=== PATIENT | female | born 2005 | race Caucasian/White ===

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

== ENCOUNTER 2025-07-14 13:38 | Emergency (ER) | payer BC, SELFPAY ==
--- NOTE | ~2025-07-14 | XR_ITS ---
CLINICAL HISTORY: vomiting,chest pain Two views of the chest. COMPARISON: None provided. FINDINGS: Normal heart and mediastinal contours. No consolidation. No pleural effusion or pneumothorax. No acute fracture. IMPRESSION: 1. No consolidation. This document has been electronically signed by: South Shay MD on 07/14/2025 15:19:19
--- NOTE | ~2025-07-14 | XR_ITS ---
CLINICAL HISTORY: ? FB in throat Two views of soft tissues of the neck. COMPARISON: None provided. FINDINGS: Prevertebral soft tissues are normal. Epiglottis is unremarkable. No fracture identified. Visualized portions of the lungs are clear. IMPRESSION: 1. Normal radiograph of the soft tissue of the neck. No radiopaque foreign body overlying the soft tissues of the neck. This document has been electronically signed by: South Shay MD on 07/14/2025 16:09:27
--- NOTE | 2025-07-14 13:41 | ED_ITS ---
HPI - General Adult General Chief complaint: Nausea/Vomiting/Diarrhea Stated complaint: laced drinks/ joints? CP, vomitti Time Seen by Provider: 07/14/25 14:54 Source: patient Mode of arrival: ambulatory Limitations: no limitations History of Present Illness ED Provider: NIKITA Arguello HPI narrative: This is a 20-year-old female history of PTSD, presenting to the emergency department with nausea and vomiting since last night. Reports that she is vomiting is improved however still vomiting and feeling very nauseous She thinks that she may have had her drinks laced or something in her joint when smoking she never passed out. She had three beers and two joints lasat night. At this time feeling nauseous. Denies fevers, chills, chest pain, shortness of breath, headache, vision changes, blood in stool or vomit, changes in urinary or bowel habits.' She tells me I throw up every time im high Related Data Home Medications ?Medication ?Instructions ?Recorded ?Confirmed lamotrigine 200 mg tablet 200 mg PO DAILY 06/28/2310/08 (Lamictal) lorazepam 2 mg tablet (Ativan) 2 mg PO TID PRN Anxiety 06/28/23 06/28/23 lurasidone 20 mg tablet (Latuda) 20 mg PO BEDTIME 06/1706/29/23 lurasidone 80 mg tablet (Latuda) 80 mg PO QAM 06/28/23 06/29/23 prazosin 2 mg capsule 2 mg PO BID 06/28/23 3 lorazepam 1 mg tablet 1 mg PO BID PRN Anxiety 06/1706/29/23 quetiapine 25 mg tablet 25 mg PO TID PRN Agitation 0 06/29/23 06/29/23 Previous Rx's ?Medication ?Instructions ?Recorded diphenhydramine HCl 25 mg capsule 25 mg PO TID PRN all ergic reaction 07/14/25 (Benadryl) #20 caps metoclopramide HCl 10 mg tablet 10 mg PO Q6H PRN heada олег #20 tabs 07/14/25 (Reglan) Allergies Allergy/AdvReac Type Severity Reaction Status Date / Time No Known Allergies Allergy Verified 07/14/25 13:46 Review of Systems 2 Review of Systems: Yes all other systems are reviewed and are negative PMFSH Past Medical History Attestation statement: The following information was validated with the patient. Source: old records reviewed and nursing notes reviewed Medical History Chronic post-traumatic stress disorder (PTSD) Bipolar disorder Social History Social History Advance Directives: No Advance Directives Information Provided: No Do you have a plan to hurt others: No Plan Physical Exam ED Exam Exam: Appearance: Alert.? Oriented X3.? No acute distress.? Head: Normocephalic, atraumatic, no step-offs or deformities Eyes: Pupils equal, round and reactive to light.? ENT: Pharynx normal.? Neck: Normal inspection.? Neck supple.? CVS: Normal heart rate and rhythm.? Pulses normal.? Respiratory: No respiratory distress.? Breath sounds normal.? Abdomen: Soft and nontender.? Skin: Skin warm and dry.? Normal skin color.? Normal skin turgor.? Extremities: No lower extremity edema.? No calf ttp. 5/5 strength to bilateral upper and lower extremities Neuro: Oriented X 3.? No motor deficit.? No sensory deficit. CN 2-12 intact Vital Signs: Vital Signs - 24 hr 07/14/25 13:43 Temperature 97.6 F Pulse Rate 80 Respiratory Rate 18 Blood Pressure 140/87 H Pulse Oximetry 98 Oxygen Delivery Method Room Air BMI result Body Mass Index 33.0 vss Course Course Course Narrative: Jane Hill [employer] VP 07/14/25 7825 This is a rapid medical exam. Deferred additional HPI, ROS, PE to primary provider. 20 yo female with history of bipolar disorder, ADHD here with complaints of vomiting. Yesterday she had 3 beers, 2 joints. 6 hours later she developed vomiting. Now feels dizzy, chest pain, subjective fevers, chills. Will obtain viral testing, REYNOSO, EKG, CXR Declined zofran in triage. VSS Reevaluation(s) Reevaluation #1: Urine toxicology positive for marijuana. COVID, flu negative. Time: 15:50 Reevaluation #2: Patient with leukocytosis 14.9, no left shift chemistry unremarkable. Normal lipase. Negative beta hCG. Negative ethanol. Patient tolerating p.o.. No episodes of nausea or vomiting. I suspect leukocytosis in the setting of reactivity from nausea and vomiting unlikely infectious. No abdominal tenderness on exam therefore no indication for abdominal imaging not suspect intra-abdominal process. Patient also tells me she always vomits when she gets ?high ?. Educated patient on diagnosis and treatment plan, answered all question, patient verbalizes understanding. At this time patient will be discharged home, advised to return with new or worsening symptoms. Educated on worrisome signs and symptoms and when to return. At this time I feel comfortable discharge home. Time: 16:22 Medications Administered Discontinued Medications Generic Name Dose Route Start Last Admin Trade Name Kenia PRN Reason Stop Dose Admin Al Hydroxide/Mg Hydroxide 15 ml 07/14/25 14:59 07/14/25 15:18 Magnesium Hydrox/Alum Hydrox 30 Ml Oral.Susp PO 07/14/25 15:00 15 ml ONCE ONE Administration Diphenhydramine HCl 25 mg 07/14/25 15:14 07/14/25 15:18 Diphenhydramine Hcl 25 Mg Capsule PO 07/14/25 15:15 25 mg ONCE ONE Administration Metoclopramide HCl 10 mg 07/14/25 15:14 07/14/25 15:18 Metoclopramide Hcl 10 Mg Tablet PO 07/14/25 15:15 10 mg ONCE ONE Administration Ondansetron HCl 4 mg 07/14/25 14:59 07/14/25 15:21 Ondansetron Odt 4 Mg Tab.Rapdis TRANSLINGU 07/14/25 15:00 Not Given ONCE ONE Medical Decision Making Medical Decision Making [facility] Narrative: 1457 20-year-old female presents with nausea, vomiting thinks she was laced or something in her joint. Now feels foreign body sensation in throat. Physical exam benign. History and physical exam concerning for nausea and vomiting likely secondary to drinking or cyclic vomiting Unlikely acute abdomen, appendicitis, cholecystitis, choledocholithiasis, pancreatitis, diverticulitis. Will rule out although unlikely. Will also rule out viral illness. Foreign body in throat likely sensation due to nausea and vomiting. I do not suspect actual foreign body in throat. Will rule out metabolic derangement. This also could be marijuana induced hyperemesis syndrome Plan basic labs, imaging. Differential Diagnosis Differential Diagnoses: The differential diagnosis associated with the presentation includes (History and physical exam concerning for nausea and vomiting likely secondary to drinking or cyclic vomiting Unlikely acute abdomen, appendicitis, cholecystitis, choledocholithiasis, pancreatitis, diverticulitis. Will rule out although unlikely. Will also rule out viral illness. Foreig) Admission/Observation Consideration of admission/observation: Escalation of care including admission/observation considered Lab Data MDM Lab Attestation statement: I reviewed the patient's lab results. 07/14/25 15:45 07/14/25 15:45 Labs: Lab Results 07/14/25 07/14/25 Range/Units 14:01 15:45 WBC 14.9 H (4.8-10.8) X10*3/uL RBC 5.20 (4.20-5.50) X10*6/uL Hgb 15.0 (12.0-16.0) g/dl Hct 40.8 (37.0-47.0) % MCV 78.5 L (80.0-98.0) fL MCH 28.8 (27.0-33.0) pg MCHC 36.8 H (31.0-35.0) g/dl RDW 14.2 (11.0-16.0) % Plt Count 323 (160-400) X10*3/uL MPV 10.1 (9.4-12.3) fL Immature Gran % (Auto) 0.3 (0.0-0.4) % Neut % (Auto) 76.0 H (45-73) % Lymph % (Auto) 16.4 L (20-40) % Walker % (Auto) 6.3 (2-11) % Eos % (Auto) 0.6 (0-4) % Baso % (Auto) 0.4 (0-2) % Lymph # (Auto) 2.4 (1.2-4.9) X10*3/uL Walker # (Auto) 0.9 (0.1-1.2) X10*3/uL Eos # (Auto) 0.1 (0.0-0.4) X10*3/uL Baso # (Auto) 0.1 (0.0-0.2) X10*3/uL Abs Immat Gran (auto) 0.05 H (0.00-0.03) X10*3/uL Absolute Neuts (auto) 11.3 H (2.0-8.3) x10*3/uL Absolute Nucleated RBC 0.000 (0.0-0.012) X10*3/uL Nucleated RBC % (auto) 0.0 (0.0-0.2) /100WBC Sodium 138 (135-145) mmol/L Potassium 3.9 (3.3-5.1) mmol/L Chloride 106 (96-108) mmol/L Carbon Dioxide 23 (22-29) mmol/L Anion Gap 13 (12-20) BUN 10 (9-16) mg/dL Creatinine 0.80 (0.5-1.4) mg/dL Estim Creat Clear Calc 145.4 Estimated GFR > 60 Random Glucose 95 (60-115) mg/dL Calcium 9.3 D (8.4-10.2) mg/dL Total Bilirubin 1.0 (0.0-1.0) mg/dL AST 23 (5-31) U/L ALT 26 (0-31) U/L Alkaline Phosphatase 77 (39-117) U/L Total Protein 7.3 (6.5-8.0) g/dL Albumin 4.5 (3.5-5.0) g/dL Lipase 10 (8-78) U/L Beta HCG, Quant < 2 mIU/mL Urine Opiates Screen Not Detected (Not Detect) Ur Buprenorphine Scrn Not Detected (Not Detect) ng/mL Ur Oxycodone Screen Not Detected (Not Detect) ng/mL Urine Methadone Screen Not Detected (Not Detect) ng/mL Urine Fentanyl Screen Not Detected (Not Detect) Ur Barbiturates Screen Not Detected (Not Detect) Ur Phencyclidine Scrn Not Detected (Not Detect) Ur Amphetamines Screen Not Detected (Not Detect) U Benzodiazepines Scrn Not Detected (Not Detect) Urine Cocaine Screen Not Detected (Not Detect) U Marijuana (THC) Screen POSITIVE H (Not Detect) Ethyl Alcohol < 10 mg/dL COVID-19 (PAWAN) Negative (Negative) COVID-19 Clin Com See Note Influenza Type A (WHITNEY) Negative (Negative) Influenza Type B (WHITNEY) Negative (Negative) Influenza A & B Note See Note Independent Interpretation I performed an independent interpretation of an: EKG (Vent. Rate : 84 BPM Atrial Rate : 84 BPM P-R Int : 144 ms QRS Dur : 88 ms QT Int : 372 ms P-R-T Axes : 48 -1 7 degrees QTcB Int : 439 ms Normal sinus rhythm with sinus arrhythmia Normal ECG No previous ECGs available ) and Plain X-Ray Radiology Impression Discussion of test interpretation with radiology: I have reviewed the radiologist's reading. External Record Review External record reviewed: Inpatient record, Office record, Outpatient record, Prior outpatient labs, Prior outpatient radiology, Primary care record and Outside ED record Chronic Conditions Patient?s care impacted by: Other (bipolar PTSD ) Critical Care Time Critical Care Time Critical Care Time: Yes Total Critical Care Time: 35 Attestation: I attest to this time spent taking care of the patient, obtaining history, physical, reviewing labs, imaging, speaking to my attending and or speaking to specialist. Or preforming a procedure Discharge Plan Discharge Clinical Impression: Cyclical vomiting syndrome, Nausea Patient Disposition: Home, Self-Care Instructions: Acute Nausea and Vomiting (ED) Additional Instructions: LTake your medications as prescribed. If you were prescribed antibiotics today, it is important that you take your medication to their entirety, do not skip any doses, do not finish them early. Follow-up with your primary care provider this week. Return to the emergency department with new or worsening symptoms. Such as fevers, chills, chest pain, shortness of breath, nausea, vomiting, dizziness, headache, vision changes, lethargy In case of emergency call 911 Please take Reglan and Benadryl together for nausea and vomiting. Do not take it more than twice a day. Do not take Reglan alone it can lead to involuntary muscle spasms. Prescriptions: New diphenhydramine HCl [Benadryl] 25 mg capsule 25 mg PO TID PRN (Reason: allergic reaction) Qty: 20 0RF metoclopramide HCl [Reglan] 10 mg tablet 10 mg PO Q6H PRN (Reason: headache) Qty: 20 0RF No Action lorazepam [Ativan] 2 mg Tablet 2 mg PO TID PRN (Reason: Anxiety) lamotrigine [Lamictal] 200 mg Tablet 200 mg PO DAILY lurasidone [Latuda] 20 mg Tablet 20 mg PO BEDTIME Rx Instructions: must administer with food (at least 350 calories) lurasidone [Latuda] 80 mg Tablet 80 mg PO QAM Rx Instructions: must administer with food (at least 350 calories) prazosin 2 mg Capsule 2 mg PO BID quetiapine 25 mg Tablet 25 mg PO TID PRN (Reason: Agitation) lorazepam 1 mg Tablet 1 mg PO BID PRN (Reason: Anxiety) Referrals: Amanda Tim MD [Primary Care Provider, Pediatrics] Stand Alone Forms: Work/School Release Print Language: Welsh
[2025-07-14 13:43] VITALS: BP 140/87; PULSE 80; RESP 18; TEMP 36.4; O2SAT 98; BMI 33.0
--- NOTE | 2025-07-14 13:45 | ECG_ITS ---
Test Reason : cp Blood Pressure : */* mmHG Vent. Rate : 84 BPM Atrial Rate : 84 BPM P-R Int : 144 ms QRS Dur : 88 ms QT Int : 372 ms P-R-T Axes : 48 -1 7 degrees QTcB Int : 439 ms Normal sinus rhythm with sinus arrhythmia Normal ECG No previous ECGs available Referred By: Jane Hill Electronically Signed By: Mikhail Doyle
--- OUTSIDE RECORDS SUMMARY | 2025-07-14 14:08 | XMS_ITS | Encounter Summary ---
Author Organization [facility] Address Unknown Care Team Providers Care Trigonometry Teacher Name Role Phone Opal Tim MD Primary Care Provider + Encounter Details Date Type Department Care Team (Late st Contact Info) Description 11/12/2019 Scanned Document [facility] [place] [address] Opal Tim MD [address] [place] [phone] Social History Tobacco Use Types Packs/Day Years Used Date Smoking Tobacco: Never Smokeless Tobacco: Never Alcohol Use Standard Drinks/Week Comments No 0 (1 standard drink = 0.6 oz pur e alcohol) Comments No Sex and Gender Information Value Date Recorded Sex Assigned at Female 03/30/2022 10:47 PM EDT Legal Sex Female 8:10 AM EDT Gender Identity Female 03/30/2022 10:47 PM EDT Sexual Orientation Lesbian or Hardy 03/30/2022 10 :47 PM EDT documented as of this encounter Plan of Treatment Upcoming Encounters Date Type Department Care Team (Late st Contact Info) Description 04/10/2026 11:00 AM EDT Office Visit [facility] [address] [address] Opal Tim MD [address] [place] [phone] 06/17/2026 1:25 PM EDT Appointment [facility] Echocardiography [address] [place] [address], [place] [address] 06/17/2026 2:30 PM EDT Follow Up [facility] Cardiology - [address] [place] [address] Radha Yu MD [address] [phone] documented as of this encounter Visit Diagnoses Not on filedocumented in this encounter Additional Health Concerns Infection Onset Date Last Indicated Resolved Time R/O COVID-19 07/16/2021 07/16/2021 07/16/2021 8:12 PM EDT R/O COVID-19 09/13/2021 09/13/2021 09/13/2021 11:2 0 PM EST COVID-19 09/13/2021 09/13/2021 09/23/2021 7:20 PM EST R/O COVID-19 04/30/2022 04/30/2022 04/30/2022 2:45 AM EDT R/O COVID-19 05/02/2022 05/02/2022 05/02/2022 7:42 AM EDT documented as of this encounter Care Teams Trigonometry Teacher Relationship Specialty Start Date End Date Opal Tim MD [address] [facility] [address] [place] [phone] PCP - General Pediatrics 01/03/13 documented as of this encounter
--- OUTSIDE RECORDS SUMMARY | 2025-07-14 14:08 | XMS_ITS | Encounter Summary ---
Author Organization [facility] Address Unknown Care Team Providers Care Wind Power Project Manager Name Role Phone Opal Tim MD Primary Care Provider + Encounter Details Date Type Department Care Team (Late st Contact Info) Description 05/25/2021 Scanned Document [facility] [place] [address] Opal Tim MD [address] [place] [phone] Social History Tobacco Use Types Packs/Day [...] EDT Office Visit [facility] [place] [address] Opal Tim MD [address] [place] [phone] 06/17/2026 1:25 PM EDT Appointment [facility] Echocardiography [address] [facility] [address]nd [place] [address] 06/17/2026 2:30 PM EDT Follow Up [facility] Card[facility] - [facility] [address] [facility] [address] [place] [address] Radha Yu MD [address] [phone] documented as of this encounter Visit Diagnoses [...] documented as of this encounter Care Teams Wind Power Project Manager Relationship Specialty Start Date End Date Opal Tim MD [address] [facility] 4 [place] [phone] PCP - General Pediatrics 01/03/13 documented as of this encounter
--- OUTSIDE RECORDS SUMMARY | 2025-07-14 14:08 | XMS_ITS | Encounter Summary ---
Author Organization [facility] Address [address] [place] [address] Care Team Providers Care Manager Service Desk Name Role Phone Opal Tim MD Primary Care Provider + Dana Perkins BS Unavailable [phone] Encounter Details Date Type Department Care Team (Late st Contact Info) Description 01/29/2022 Prep for Surgery [facility]-Admission [facility] [address] [place] [phone] Amy Ramos RN [address] [place] [phone] Social History Tobacco Use Types Packs/Day Years Used Date Smoking Tobacco: Never Assessed Comments Unknown Sex and Gender Information Value Date Recorded Sex Assigned at Female 03/22/2025 1:49 PM EDT Legal Sex Female 5:49 PM EDT Gender Identity Female 03/22/2025 1:49 PM EDT Sexual Orientation Heterosexual (straight) 03/22 1:49 PM EDT COVID-19 Exposure Response Date Recorded In the last 10 days, have yo u been in contact with someone who was confirmed or suspected to have Coronavirus/COVID-19? No / Unsure 02/01/2022 8:19 AM EDT documented as of this encounter Plan of Treatment Not on file documented as of this encounter Visit Diagnoses Not on filedocumented in this encounter Care Teams Manager Service Desk Relationship Specialty Start Date End Date Opal Tim MD PCP - General Pediatrics 11/15/16 Dana Perkins BS [address] [place] [address] Social Work 09/04/24 documented as of this encounter
--- OUTSIDE RECORDS SUMMARY | 2025-07-14 14:08 | XMS_ITS | Encounter Summary ---
Author Organization [facility] Address [address] [place] [phone] Care Team Providers Care Tank Truck Operator Name Role Phone Opal Tim MD Primary Care Provider + Encounter Details Date Type Department Care Team (Late st Contact Info) Description 05/26/2021 Scanned Document [facility] SCHEDULING [address] [place] [address] Opal Tim MD [address] [place] [phone] Social History Tobacco Use Types Packs/Day [...] EDT Office Visit [facility] of [address] [address] Opal Tim MD [address] [place] [phone] 06/17/2026 1:25 PM EDT Appointment [facility] [address] [facility] [address] [place] [address] 06/17/2026 2:30 PM EDT Follow Up [facility] - [address] [place] [address] Radha Yu MD [address] [phone] documented as of this encounter Visit Diagnoses [...] documented as of this encounter Care Teams Tank Truck Operator Relationship Specialty Start Date End Date Opal Tim MD [address] [facility] 4 [place] [phone] PCP - General Pediatrics 01/03/13 documented as of this encounter
--- OUTSIDE RECORDS SUMMARY | 2025-07-14 14:08 | XMS_ITS | Encounter Summary ---
Author Organization [facility] Address Unknown Care Team Providers Care Outpatient Receptionist Name Role Phone Opal Tim MD Primary Care Provider + Encounter Details Date Type Department Care Team (Late st Contact Info) Description 05/25/2021 Scanned Document [facility] [place] [address] Opal Tim MD [address] [place] [phone] Social History Tobacco Use Types Packs/Day [...] EDT Office Visit [facility] [place] [address] Opal Tim MD [address] [place] [phone] 06/17/2026 1:25 PM EDT Appointment [facility] Echocardiography 35 [facility] 2nd [place] [address] 06/17/2026 2:30 PM EDT Follow Up [facility] Cardiology - [facility] 35 [facility] 2nd [place] [address] Radha Yu MD [address] [phone] documented as of this encounter Visit Diagnoses [...] documented as of this encounter Care Teams Outpatient Receptionist Relationship Specialty Start Date End Date Opal Tim MD [address] [facility] 4 [place] [address] PCP - General Pediatrics 01/03/13 documented as of this encounter
--- OUTSIDE RECORDS SUMMARY | 2025-07-14 14:08 | XMS_ITS | Encounter Summary ---
Author Organization [facility]oles[facility] Address Unknown Care Team Providers Care Post Tensioning Ironworker Helper Name Role Phone Opal Tim MD Primary Care Provider + Encounter Details Date Type Department Care Team (Late st Contact Info) Description 05/11/2021 Scanned Document [facility] [place] [address] Opal Tim MD [address] [place] [phone] Social History Tobacco Use Types Packs/Day [...] EDT Office Visit [facility] [place] [address] Opal Tim MD [address] [place] [phone] 06/17/2026 1:25 PM EDT Appointment [facility] Echocardiography 35 [facility] 2nd [place] [address] 06/17/2026 2:30 PM EDT Follow Up [facility] Cardiology - [facility] 35 [facility] 2nd [place] [address] Radha Yu MD [address] [phone] documented as of this encounter Visit Diagnoses [...] documented as of this encounter Care Teams Post Tensioning Ironworker Helper Relationship Specialty Start Date End Date Opal Tim MD [address] [facility] 4 [place] [address] PCP - General Pediatrics 01/03/13 documented as of this encounter
--- OUTSIDE RECORDS SUMMARY | 2025-07-14 14:08 | XMS_ITS | Encounter Summary ---
Author Organization [facility]oles[facility] Address Unknown Care Team Providers Care Glass Laminating Operator Name Role Phone Opal Tim MD Primary Care Provider + Encounter Details Date Type Department Care Team (Late st Contact Info) Description 10/14/2021 Scanned Document [facility] [address] [address] Opal Tim MD [address] [place] [phone] Social History Tobacco Use Types Packs/Day Years [...] or Hardy 03/30/2022 10 :47 PM EDT COVID-19 Exposure Response Date Recorded In the last month, have you been in contact with someone who was confirmed or suspected to have Coronavirus / COVID-19? No / Unsure 10/08/2021 12:01 PM EST documented as of this encounter Plan of Treatment Upcoming Encounters Date Type Department Care Team (Late st Contact Info) Description 04/10/2026 11:00 AM EDT Office Visit [facility] of [address] [place] [address] Opal Tim MD [address] [place] [phone] 06/17/2026 1:25 PM EDT Appointment [facility] Echocardiography 35 [facility] 2nd [place] [address] 06/17/2026 2:30 PM EDT Follow Up [facility] Cardiology - [facility] 35 [facility] [address]nd [place] [address] Radha Yu MD [address] [phone] documented as of this encounter Visit Diagnoses Not on filedocumented in this encounter Additional Health Concerns Infection Onset Date Last Indicated Resolved Time R/O COVID-19 04/30/2022 04/30/2022 04/30/2022 2:45 AM EDT R/O COVID-19 05/02/2022 05/02/2022 05/02/2022 7:42 AM EDT documented as of this encounter Care Teams Glass Laminating Operator Relationship Specialty Start Date End Date Opal Tim MD [address] [place] [phone] PCP - General Pediatrics 01/03/13 documented as of this encounter
--- OUTSIDE RECORDS SUMMARY | 2025-07-14 14:08 | XMS_ITS | Encounter Summary ---
Author Organization Pediatric [facility] Adolesce nt Medicine [facility] Address Unknown Care Team Providers Care Paper Sorter And Counter Name Role Phone Opal Tim MD Primary Care Provider + Encounter Details Date Type Department Care Team (Late st Contact Info) Description 07/07/2021 Scanned Document [facility] [place] [address] Opal Tim MD [address] [place] [phone] Social History Tobacco Use Types Packs/Day [...] EDT Office Visit [facility] [place] [address] Opal Tim MD [address] [place] [phone] 06/17/2026 1:25 PM EDT Appointment [facility] Echocardiography 35 [facility] 2nd [facility] [place] [address] 06/17/2026 2:30 PM EDT Follow Up [facility] Cardiology - [facility] 35 [facility] [address]nd [facility] [place] [address] Radha Yu MD [address] [phone] documented as of this encounter Visit Diagnoses [...] documented as of this encounter Care Teams Paper Sorter And Counter Relationship Specialty Start Date End Date Opal Tim MD [address] [facility] 4 [place] [address] PCP - General Pediatrics 01/03/13 documented as of this encounter
--- OUTSIDE RECORDS SUMMARY | 2025-07-14 14:08 | XMS_ITS | Encounter Summary ---
Author Organization [facility]olesce nt Medicine [facility] Address Unknown Care Team Providers Care Patternmaker Name Role Phone Opal Tim MD Primary Care Provider + Encounter Details Date Type Department Care Team (Late st Contact Info) Description 04/08/2020 Scanned Document [facility] & [place] [address] Opal Tim MD [address] [place] [phone] Social History Tobacco Use Types Packs/Day Years [...] have Coronavirus / COVID-19? No / Unsure 03/24/2020 4:41 PM EDT documented as of this encounter Plan of Treatment Upcoming Encounters Date Type Department Care Team (Late Contact Info) Description 04/10/2026 11:00 AM EDT Office Visit [facility] Adolescent Medicine [facility], [address] [place] [address] Opal Tim MD [address] [place] [address] 4 [place] [address] 06/17/2026 1:25 PM EDT Appointment [address] 2nd [place] [address] 06/17/2026 2:30 PM EDT Follow Up [facility] Cardiology - [address] 2nd [place] [address] Radha Yu MD [address] [place] [phone] documented as of this encounter Visit Diagnoses [...] documented as of this encounter Care Teams Patternmaker Relationship Specialty Start Date End Date Opal Tim MD [address] [place] [address] 4 [place] [address] PCP - General Pediatrics 01/03/13 documented as of this encounter
--- OUTSIDE RECORDS SUMMARY | 2025-07-14 14:08 | XMS_ITS | Encounter Summary ---
Author Organization [facility] Adolesce nt [facility] Address Unknown Care Team Providers Care Barrel Builder Name Role Phone Opal Tim MD Primary Care Provider + Encounter Details Date Type Department Care Team (Late st Contact Info) Description 05/08/2021 Scanned Document [facility] [place] [address] Opal Tim MD [address] [place] [phone] Social History Tobacco Use Types Packs/Day [...] EDT Office Visit [facility] [place] [address] Opal Tim MD [address] [place] [phone] 06/17/2026 1:25 PM EDT Appointment [facility] Echocardiography 35 [facility] 2nd [place] [address] 06/17/2026 2:30 PM EDT Follow Up [facility] Cardiology - [facility] 35 [facility] [address]nd [place] [address] Radha Yu MD [address] [phone] documented as of this encounter Visit Diagnoses [...] documented as of this encounter Care Teams Barrel Builder Relationship Specialty Start Date End Date Opal Tim MD [address] [facility] 4 [place] [phone] PCP - General Pediatrics 01/03/13 documented as of this encounter
--- OUTSIDE RECORDS SUMMARY | 2025-07-14 14:08 | XMS_ITS | Encounter Summary ---
Author Organization Pediatric [facility] Adolesce nt Medicine [facility] Address Unknown Care Team Providers Care Cotton Presser Name Role Phone Opal Tim MD Primary Care Provider + Encounter Details Date Type Department Care Team (Late st Contact Info) Description 05/07/2021 Scanned Document [facility] [place] [address] Opal Tim MD [address] [place] [phone] Social History Tobacco Use Types Packs/Day [...] EDT Office Visit [facility] [place] [address] Opal Tim MD [address] [place] [phone] 06/17/2026 1:25 PM EDT Appointment [facility] Echocardiography 35 [facility] 2nd [place] [address] 06/17/2026 2:30 PM EDT Follow Up [facility] Cardiology - [facility] 35 [facility] [address]nd [place] [address] Radha Yu MD [address] [phone] documented as of this encounter Visit Diagnoses [...] documented as of this encounter Care Teams Cotton Presser Relationship Specialty Start Date End Date Opal Tim MD [address] [facility] 4 [place] [phone] PCP - General Pediatrics 01/03/13 documented as of this encounter
--- OUTSIDE RECORDS SUMMARY | 2025-07-14 14:09 | XMS_ITS | Encounter Summary ---
Author Organization [facility]oles[facility] nt Medicine [facility] Address Unknown Care Team Providers Care Stage Producer Name Role Phone Opal Tim MD Primary Care Provider + Encounter Details Date Type Department Care Team ([facility] st Contact Info) Description 10/21/2022 Scanned Document [facility] [address] [address] Opal Tim MD [address] [place] [phone] Social History Tobacco Use Types Packs/Day Years Used Date Smoking Tobacco: Never Smokeless Tobacco: Never Alcohol Use Standard Drinks/Week Comments No 0 (1 standard drink = 0.6 oz pur e alcohol) Overall Financial Resource Strain (CARDIA) Answe r Date Recorded How hard is it for you to pa y for the very basics like food, housing, medical care, and heating? Not hard at all 05/04/2022 PHQ-2 Answer Date Recorded PHQ-2 Total Score 0 05/03/2022 Hunger Vital Sign Answer Date Recorded Within the past 12 months, y ou worried that your food would run out before you got the money to buy more. Never true 05/04/20 22 Within the past 12 months, t he food you bought just didn't last and you didn't have money to get more. Never true 05/04/2022 PRAPARE - Transportation Answer Date Re corded In the past 12 months, has l ack of transportation kept you from medical appointments or from getting medications? No 04/16 In the past 12 months, has l ack of transportation kept you from meetings, work, or from getting things needed for daily living? No 05/04/2022 Housing Stability Answer Date Recorded Housing Stability I have a steady place to live 05/04/2022 Comments No Sex and Gender Information Value [...] EDT Office Visit [facility] [address] [address] Opal Tim MD [address] [place] [phone] 06/17/2026 1:25 PM EDT Appointment [facility] Echocardiography [address] [place] [address] 06/17/2026 2:30 PM EDT Follow Up [facility] Cardiology - [address] [address] Radha Yu MD [address] [place] [phone] documented as of this encounter Visit Diagnoses Not on filedocumented in this encounter Additional Health Concerns Assessment Noted Time PHQ-9 Depression Total Score: 0 05/03/20 2:00 PM EDT documented as of this encounter Care Teams Stage Producer Relationship Specialty Start Date End Date Opal Tim MD [address] [place] [phone] PCP - General Pediatrics 01/03/13 documented as of this encounter
--- OUTSIDE RECORDS SUMMARY | 2025-07-14 14:09 | XMS_ITS | Encounter Summary ---
Author Organization [facility] Adolesce [facility] Medicine [facility] Address Unknown Care Team Providers Care Plastic Mixer Name Role Phone Opal Tim MD Primary Care Provider + Encounter Details Date Type Department Care Team (Late st Contact Info) Description 03/22/2016 Scanned Document Pediatric & [place] [address] Opal Tim MD [address] [place] [phone] Social History Tobacco Use Types Packs/Day Years Used Date Smoking Tobacco: Never Alcohol Use Standard Drinks/Week Comments [...] EDT Office Visit [facility] [address] [address] Opal Tim MD [address] [place] [phone] 06/17/2026 1:25 PM EDT Appointment [address] 2nd [facility] [place] [address] 06/17/2026 2:30 PM EDT Follow Up [facility] Cardiology - [facility] 35 [facility] 2nd [place] [address] Radha Yu MD [address] [phone] documented as of this encounter Visit Diagnoses [...] documented as of this encounter Care Teams Plastic Mixer Relationship Specialty Start Date End Date Opal Tim MD [address] [phone] PCP - General Pediatrics 01/03/13 documented as of this encounter
--- OUTSIDE RECORDS SUMMARY | 2025-07-14 14:09 | XMS_ITS | Encounter Summary ---
Author Organization [facility] Address [address] [place] [address] Care Team Providers Care Motor Generator Set Operator Name Role Phone Opal Tim MD Primary Care Provider + Dana Perkins BS Unavailable [phone] Encounter Details Date Type Department Care Team (Late st Contact Info) Description 03/13/2025 Scanned Document [address] [place] [phone] Provider, Generic Social History Tobacco Use Types Packs/Day Years Used Date Smoking Tobacco: Never Smokeless Tobacco: Current Alcohol Use Standard Drinks/Week Comments Never 0 (1 standard drink = 0.6 oz pur e alcohol) Comments No Sex and Gender Information Value Date Recorded Sex Assigned at Female 03/22/2025 1:49 PM EDT Legal Sex Female 5:49 PM EDT Gender Identity Female 03/22/2025 1:49 PM EDT Sexual Orientation Heterosexual (straight) 03/22 1:49 PM EDT documented as of this encounter Plan of Treatment Not on file documented as of this encounter Visit Diagnoses Not on filedocumented in this encounter Care Teams Motor Generator Set Operator Relationship Specialty Start Date End Date Opal Tim MD PCP - General Pediatrics 11/15/16 Dana Perkins BS [address] [place] [address] Social Work 09/04/24 documented as of this encounter
--- OUTSIDE RECORDS SUMMARY | 2025-07-14 14:09 | XMS_ITS | Encounter Summary ---
Author Organization Pediatric [facility] Adolesce nt Medicine [facility] Address Unknown Care Team Providers Care Control Officer Manager Name Role Phone Opal Tim MD Primary Care Provider + Encounter Details Date Type Department Care Team (Late st Contact Info) Description 10/27/2018 Scanned Document [facility] [place] [address] Opal Tim MD [address] [place] [phone] Social History Tobacco Use Types Packs/Day [...] EDT Office Visit [facility] [address] [address] Opal Tim MD [address] [place] [phone] 06/17/2026 1:25 PM EDT Appointment [facility] Echocardiography [address] [place] [address], [place] [address] 06/17/2026 2:30 PM EDT Follow Up [facility] Cardiology - [address] [place] [address] Radha Yu MD [address] [phone] documented as of this encounter Visit Diagnoses [...] documented as of this encounter Care Teams Control Officer Manager Relationship Specialty Start Date End Date Opal Tim MD [address] [facility] 4 [place] [address] PCP - General Pediatrics 01/03/13 documented as of this encounter
--- OUTSIDE RECORDS SUMMARY | 2025-07-14 14:09 | XMS_ITS | Encounter Summary ---
Author Organization Pediatric & Adolesce nt Medicine [facility] Address Unknown Care Team Providers Care Master Merchandiser Name Role Phone Opal Tim MD Primary Care Provider + Encounter Details Date Type Department Care Team ([facility] st Contact Info) Description 08/03/2022 Scanned Document [facility] [address] [address] Opal Tim MD [address] [place] [phone] Social History Tobacco Use Types Packs/Day [...] EDT Office Visit [facility] [address] [address] Opal Tim MD [address] [place] [phone] 06/17/2026 1:25 PM EDT Appointment [facility] Echocardiography [address] [place] [phone] 06/17/2026 2:30 PM EDT Follow Up [facility] Cardiology - [address] [address] Radha Yu MD [address] [place] [phone] documented as of this encounter Visit Diagnoses Not on filedocumented in this encounter Additional Health Concerns Assessment Noted Time PHQ-9 Depression Total Score: 0 05/03/20 2:00 PM EDT documented as of this encounter Care Teams Master Merchandiser Relationship Specialty Start Date End Date Opal Tim MD [address] [place] [phone] PCP - General Pediatrics 01/03/13 documented as of this encounter
--- OUTSIDE RECORDS SUMMARY | 2025-07-14 14:09 | XMS_ITS | Encounter Summary ---
Author Organization Pediatric & Adolesce nt Medicine [facility] Address Unknown Care Team Providers Care Replenishment Specialist Name Role Phone Opal Tim MD Primary Care Provider + Encounter Details Date Type Department Care Team (Late st Contact Info) Description 12/07/2016 Scanned Document [facility] & [place] [address] Opal Tim MD [address] [place] [phone] Social History Tobacco Use Types Packs/Day [...] EDT Office Visit [facility] [address] [address] Opal Tim MD [address] [place] [phone] 06/17/2026 1:25 PM EDT Appointment [address] 2nd [facility] [address] 06/17/2026 2:30 PM EDT Follow Up [facility] Cardiology - [facility] 35 [facility] 2nd [facility] [address] Radha Yu MD [address] [phone] documented as of this encounter Visit Diagnoses [...] documented as of this encounter Care Teams Replenishment Specialist Relationship Specialty Start Date End Date Opal Tim MD [address] [phone] PCP - General Pediatrics 01/03/13 documented as of this encounter
--- OUTSIDE RECORDS SUMMARY | 2025-07-14 14:09 | XMS_ITS | Encounter Summary ---
Author Organization Pediatric & Adolesce nt Medicine [facility] Address Unknown Care Team Providers Care Hairmasters Manager Name Role Phone Opal Tim MD Primary Care Provider + Encounter Details Date Type Department Care Team (Late st Contact Info) Description 11/16/2016 Scanned Document Pediatric & [place] [address] Opal Tim MD [address] [place] [phone] Social History Tobacco Use Types Packs/Day [...] Office Visit [facility] [address] [address] Opal Tim MD [address] [place] [phone] 06/17/2026 1:25 PM EDT Appointment [address] 2nd [place] [address] 06/17/2026 2:30 PM EDT Follow Up [facility] Cardiology - [facility] 35 [facility] 2nd [place] [address] Radha Yu MD [address] [phone] documented as of this encounter Visit Diagnoses [...] documented as of this encounter Care Teams Hairmasters Manager Relationship Specialty Start Date End Date Opal Tim MD [address] [phone] PCP - General Pediatrics 01/03/13 documented as of this encounter
--- OUTSIDE RECORDS SUMMARY | 2025-07-14 14:09 | XMS_ITS | Encounter Summary ---
Author Organization Pediatric & Adolesce nt Medicine [facility] Address Unknown Care Team Providers Care Yarn Weigher Name Role Phone Opal Tim MD Primary Care Provider + Encounter Details Date Type Department Care Team (Late st Contact Info) Description 07/26/2017 Scanned Document [facility] & [place] [address] Opal Tim MD [address] [place] [phone] Social History Tobacco Use Types Packs/Day [...] EDT Office Visit [facility] [address] [address] Opal Tim MD [address] [place] [phone] 06/17/2026 1:25 PM EDT Appointment [address] 2nd [facility] [address] 06/17/2026 2:30 PM EDT Follow Up [facility] Cardiology - [facility] 35 [facility] 2nd [facility] [address] Radha Yu MD [address] [phone] documented as of this encounter Visit Diagnoses [...] documented as of this encounter Care Teams Yarn Weigher Relationship Specialty Start Date End Date Opal Tim MD [address] [phone] PCP - General Pediatrics 01/03/13 documented as of this encounter
--- OUTSIDE RECORDS SUMMARY | 2025-07-14 14:09 | XMS_ITS | Encounter Summary ---
Author Organization [facility] Address [address] [place] [address] Care Team Providers Care Log Yard Derrick Operator Name Role Phone Opal Tim MD Primary Care Provider + Dana Perkins BS Unavailable [phone] Encounter Details Date Type Department Care Team (Late st Contact Info) Description 03/13/2025 Scanned Document [address] [place] [phone] Provider, Generic Social History Tobacco Use [...] on filedocumented in this encounter Care Teams Log Yard Derrick Operator Relationship Specialty Start Date End Date Opal Tim MD PCP - General Pediatrics 11/15/16 Dana Perkins BS [address] [place] [address] Social Work 09/04/24 documented as of this encounter
--- OUTSIDE RECORDS SUMMARY | 2025-07-14 14:09 | XMS_ITS | Encounter Summary ---
Author Organization [facility] Address [address] [place] [phone] Care Team Providers Care Interlibrary Loan Services Librarian Name Role Phone Opal Tim MD Primary Care Provider + Reason for Referral * General (Routine) - Closed Specialty Diagnoses / Procedures Referred By Contac t Referred To Contact Diagnoses Altered mental state Procedures EEG Opal Tim MD [address] [phone] Phone: tel: fax: Referral ID Status Reason Start Date Expiration Date Visits Re quested Visits Authorized [id number] Closed 01/05/2013 01/05/2014 1 1 Encounter Details Date Type Department Care Team (Latest Contact Info) Description 01/05/2013 Transcribed Orders [facility] [address] [address] Opal Tim MD [address] [phone] Altered mental state (Primary Dx) Social History Tobacco Use Types Packs/Day Years [...] Upcoming Encounters Date Type Department Care Team ([facility] st Contact Info) Description 04/10/2026 11:00 AM EDT Office Visit Pediatric & Adolescent Medicine [address] [address] Opal Tim MD [address] [place] [phone] 06/17/2026 1:25 PM EDT Appointment [address] [address] 06/17/2026 2:30 PM EDT Follow Up [facility] - [address] [address] Radha Yu MD [address] [place] [phone] documented as of this encounter Results * EEG (YCT,SRC, ONLY) (01/30/2013 6:07 PM EDT) Narrative Rukhsana Sanchez MD - 01/30/2013 6:07 PM EDT Rukhsana Sanchez MD 01/30/2013 6:07 PM Electroencephalography Report [address] ([address] [address])[place] [address] Name: Doreen Her Unit Number: [id number] Date of : 2005 Date of Study: 01/30/2013 Start: 10:30 hours Finish: 11:16 hours Duration: 45 minutes Leads: 21 Lead / Digital Video: NO Type: extended EEG Requesting Provider: Dr. Batsheva Tim Reason for EEG: transient altered mental state Prior EEG: None available Pertinent Medications: Intunio & Focalin Interpretation: Background activity: The background rhythm was characterized by well-developed 9-10 Hz alpha rhythm at 40-80 microvolts with frontal beta activity at 30 microvolts more prominent on the left. Symmetry & Continuity: The background rhythm was continuous and symmetric. Sleep rhythms: Awake only EEG Activation procedures: Hyperventilation and photic stimulation revealed no abnormality. Abnormal activity: No seizures, epileptiform or periodic discharges were seen. Impression: Normal awake EEG for age. I have reviewed the EEG with Dr Whiting and agree with the findings summarized above. This represents my personal impression. Comment: Normal EEG Interpreted by: Rukhsana Sanchez MD, FAAN, FACELIZABETH Procedure Note Rukhsana Sanchez MD - 01/30/2013 6:07 PM EDT Electroencephalography Report [facility], [address] [place] [address] ([facility] 2)[place] [address] Name: Doreen Her Unit Number: [id number] Date of : 2005 Date of Study: 01/30/2013 Start: 10:30 hours Finish: 11:16 hours Duration: 45 minutes Leads: 21 Lead / Digital Video: NO Type: extended EEG Requesting Provider: Dr. Batsheva Tim Reason for EEG: transient altered mental state Prior EEG: None available Pertinent Medications: Intunio & Focalin Interpretation: Background activity: The background rhythm was characterized bywell-developed 9- 10 Hz alpha rhythm at 40-80 microvolts with frontal betaactivity at 30 microvolts more prominent on the left. Symmetry & Continuity: The background rhythm was continuous and symmetric. Sleep rhythms: Awake only EEG Activation procedures: Hyperventilation and photic stimulation revealed noabnormality. Abnormal activity: No seizures, epileptiform or periodic discharges wereseen. Impression: Normal awake EEG for age. I have reviewed the EEG with Dr Whiting and agree with the findingssummarized above. This represents my personal impression. Comment: Normal EEG Interpreted by: Rukhsana Sanchez MD, FAAN, FACNS us Opal Tim MD NEUROLOGY ORDERABLES Fin al Result documented in this encounter Visit Diagnoses Diagnosis Altered mental state- Primary Altered mental status Altered mental state Altered mental status documented in this encounter Additional Health Concerns Infection Onset Date Last Indicated Resolved Time R/O COVID-19 07/16/2021 07/16/2021 07/16/2021 8:12 PM EDT R/O COVID-19 09/13/2021 09/13/2021 09/13/2021 11:2 0 PM EST COVID-19 09/13/2021 09/13/2021 09/23/2021 7:20 PM EST R/O COVID-19 04/30/2022 04/30/2022 04/30/2022 2:45 AM EDT R/O COVID-19 05/02/2022 05/02/2022 05/02/2022 7:42 AM EDT documented as of this encounter Care Teams Interlibrary Loan Services Librarian Relationship Specialty Start Date End Date Opal Tim MD [address] [phone] PCP - General Pediatrics 01/03/13 documented as of this encounter
--- OUTSIDE RECORDS SUMMARY | 2025-07-14 14:09 | XMS_ITS | Encounter Summary ---
Author Organization Pediatric & Adolesce nt Medicine [facility] Address Unknown Care Team Providers Care Rand Maker Name Role Phone Opal Tim MD Primary Care Provider + Encounter Details Date Type Department Care Team (Late st Contact Info) Description 01/11/2017 Scanned Document Pediatric & [place] [address] Opal Tim MD [address] [place] [phone] Social History Tobacco Use Types Packs/Day [...] EDT Office Visit Pediatric & Adolescent Medicine [address] [address] Opal Tim MD [address] [place] [phone] 06/17/2026 1:25 PM EDT Appointment [address] [place] [address] 06/17/2026 2:30 PM EDT Follow Up [facility] Cardiology - [facility] [address] [facility] [address] [place] [address] Radha Yu MD [address] [phone] documented as of this encounter Visit Diagnoses [...] documented as of this encounter Care Teams Rand Maker Relationship Specialty Start Date End Date Opal Tim MD [address] [phone] PCP - General Pediatrics 01/03/13 documented as of this encounter
--- OUTSIDE RECORDS SUMMARY | 2025-07-14 14:09 | XMS_ITS | Encounter Summary ---
Author Organization Pediatric & Adolesce nt Medicine [facility] Address Unknown Care Team Providers Care Automated Cutting Machine Operator Name Role Phone Opal Tim MD Primary Care Provider + Encounter Details Date Type Department Care Team (Late st Contact Info) Description 11/01/2017 Scanned Document Pediatric & [place] [address] Opal Tim MD [address] [place] [phone] Social History Tobacco Use Types Packs/Day [...] Office Visit Pediatric & Adolescent Medicine [address] [address] Opal Tim MD [address] [place] [phone] 06/17/2026 1:25 PM EDT Appointment [address] 2nd [facility] [place] [address] 06/17/2026 2:30 PM EDT Follow Up [facility] Cardiology - [facility] 35 [facility] [address]nd [place] [address] Radha Yu MD [address] [phone] documented as of this encounter Visit Diagnoses [...] documented as of this encounter Care Teams Automated Cutting Machine Operator Relationship Specialty Start Date End Date Opal Tim MD [address] [phone] PCP - General Pediatrics 01/03/13 documented as of this encounter
--- OUTSIDE RECORDS SUMMARY | 2025-07-14 14:09 | XMS_ITS | Encounter Summary ---
Author Organization Pediatric [facility]ce nt Medicine [facility] Address Unknown Care Team Providers Care Manager Strategy & Account Name Role Phone Opal Tim MD Primary Care Provider + Encounter Details Date Type Department Care Team (Late st Contact Info) Description 11/23/2016 Scanned Document Pediatric & [place] [address] Opal Tim MD [address] [place] [phone] Social History Tobacco Use Types Packs/Day [...] EDT Office Visit Pediatric & Adolescent Medicine [address] [address] Opal Tim MD [address] [place] [phone] 06/17/2026 1:25 PM EDT Appointment [address] 2nd [place] [address] 06/17/2026 2:30 PM EDT Follow Up [facility] Cardiology - [facility] 35 [facility] [address]nd [place] [address] Radha Yu MD [address] [phone] documented as of this encounter Visit Diagnoses [...] documented as of this encounter Care Teams Manager Strategy & Account Relationship Specialty Start Date End Date Opal Tim MD [address] [phone] PCP - General Pediatrics 01/03/13 documented as of this encounter
--- OUTSIDE RECORDS SUMMARY | 2025-07-14 14:09 | XMS_ITS | Encounter Summary ---
Author Organization Pediatric & Adolesce nt Medicine [facility] Address Unknown Care Team Providers Care Basin Finish Operator Tig Welder Name Role Phone Opal Tim MD Primary Care Provider + Encounter Details Date Type Department Care Team (Late st Contact Info) Description 10/06/2017 Scanned Document Pediatric & [place] [address] Opal Tim MD [address] [place] [phone] Social History Tobacco Use Types Packs/Day [...] EDT Office Visit Pediatric & Adolescent Medicine [address] [address] Opal Tim MD [address] [place] [phone] 06/17/2026 1:25 PM EDT Appointment [address] 2nd [place] [address] 06/17/2026 2:30 PM EDT Follow Up [facility] Cardiology - [facility] 35 [facility] [address]nd [place] [address] Radha Yu MD [address] [phone] documented as of this encounter Visit Diagnoses [...] documented as of this encounter Care Teams Basin Finish Operator Tig Welder Relationship Specialty Start Date End Date Opal Tim MD [address] [phone] PCP - General Pediatrics 01/03/13 documented as of this encounter
--- OUTSIDE RECORDS SUMMARY | 2025-07-14 14:09 | XMS_ITS | Encounter Summary ---
Author Organization [facility] Address [address] [place] [address] Care Team Providers Care Potato Spotter Name Role Phone Opal Tim MD Primary Care Provider + Dana Perikns BS Unavailable [phone] Encounter Details Date Type Department Care Team (Late st Contact Info) Description 03/13/2025 Scanned Document [address] [place] [phone] Provider, Generic Social History Tobacco Use [...] on filedocumented in this encounter Care Teams Potato Spotter Relationship Specialty Start Date End Date Opal Tim MD PCP - General Pediatrics 11/15/16 Dana Perkins BS [address] [place] [address] Social Work 09/04/24 documented as of this encounter
--- OUTSIDE RECORDS SUMMARY | 2025-07-14 14:09 | XMS_ITS | Encounter Summary ---
Author Organization Pediatric & Adolesce nt Medicine [facility] Address Unknown Care Team Providers Care Reservoir Engineering Consultant Name Role Phone Opal Tim MD Primary Care Provider + Encounter Details Date Type Department Care Team (Late st Contact Info) Description 02/05/2022 Scanned Document Pediatric & Adolescent Medicine [address] [address] Opal Tim MD [address] [place] [phone] Social History Tobacco Use Types Packs/Day Years Used Date Smoking Tobacco: Never Smokeless Tobacco: Never Alcohol Use Standard Drinks/Week Comments No 0 (1 standard drink = 0.6 oz pur e alcohol) PHQ-2 Answer Date Recorded PHQ-2 Total Score 1 12/08/2021 Comments No Sex and Gender Information Value [...] Office Visit Pediatric & Adolescent Medicine [address] [address] Oapl Tim MD [address] [place] [phone] 06/17/2026 1:25 PM EDT Appointment [facility] Echocardiography [address] 2[address] [place] [address] 06/17/2026 2:30 PM EDT Follow Up [facility] - [facility] 2nd [place] [address] Radha Yu MD 1 [facility] 2 [place] [phone] documented as of this encounter Visit Diagnoses Not on filedocumented in this encounter Additional Health Concerns Infection Onset Date Last Indicated Resolved Time R/O COVID-19 04/30/2022 04/30/2022 04/30/2022 2:45 AM EDT R/O COVID-19 05/02/2022 05/02/2022 05/02/2022 7:42 AM EDT Assessment Noted Time PHQ-9 Depression Total Score: 1 12/08/19 22 2:19 PM EST documented as of this encounter Care Teams Reservoir Engineering Consultant Relationship Specialty Start Date End Date Opal Tim MD [address] [place] [phone] PCP - General Pediatrics 01/03/13 documented as of this encounter
--- OUTSIDE RECORDS SUMMARY | 2025-07-14 14:09 | XMS_ITS | Encounter Summary ---
Author Organization Pediatric & Adolesce nt Medicine [facility] Address Unknown Care Team Providers Care Sheriff Deputy Name Role Phone Opal Tim MD Primary Care Provider + Encounter Details Date Type Department Care Team (Late st Contact Info) Description 07/30/2014 Scanned Document Pediatric & [place] [address] Opal Tim MD [address] [place] [phone] Social History Tobacco Use Types Packs/Day Years Used Date Smoking Tobacco: Never Alcohol Use Standard Drinks/Week Comments No 0 (1 standard drink = 0.6 oz pur e alcohol) Comments Unknown Sex and Gender Information Value [...] EDT Office Visit Pediatric & Adolescent Medicine [address] [address] Opal Tim MD [address] [place] [phone] 06/17/2026 1:25 PM EDT Appointment [address] 2nd [place] [address] 06/17/2026 2:30 PM EDT Follow Up [facility] Cardiology - [facility] 35 [facility] [address]nd [place] [address] Radha Yu MD [address] [phone] documented as of this encounter Visit Diagnoses [...] documented as of this encounter Care Teams Sheriff Deputy Relationship Specialty Start Date End Date Opal Tim MD [address] [phone] PCP - General Pediatrics 01/03/13 documented as of this encounter
--- OUTSIDE RECORDS SUMMARY | 2025-07-14 14:09 | XMS_ITS | Clinical Summary ---
Author Organization [address] Address [address] [place] [phone] Care Team Providers Care Photoengraving Supervisor Name Role Phone Opal Tim MD Primary Care Provider + Allergies No known active allergies Medications CAPLYTA 21 mg Cap Take 2 capsules by mouth daily. 03/01/2025 Active dexmethylphenid ate 25 mg MP50 Take 1 capsule by mouth daily. 03/28/2025 Active lamoTRIgine (LAMICTAL) 100 mg immediate release tablet Take 1 tablet (100 mg total) by mouth every morning. 04/01/2025 Active REXULTI 4 mg Tab Take 1 tablet by mouth daily. 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 Family history of genetic disease 12/09/2021 OCD (obsessive compulsive disorder) 03/24/2020 Myopia 09/10/2015 ADHD (attention deficit hyperactivity disorder) 04/17/2014 Anxiety 05/18/2013 Resolved Problems Problem Noted Date Diagnosed Date Resolved Date History of ADHD 05/10/2022 04/09/2024 Acne vulgaris 09/05/2018 03/30/2022 Femoral anteversion 08/13/2014 04/09/20 Well adult exam 07/02/2014 10/22/2024 Scoliosis 04/17/2014 03/30/2022 Encounters Date Type Department Care Team Description 06/11/2025 1:40 PM EDT Office Visit [facility] Cardiology - [facility] [place] [address] [facility] 2nd [place] [address] Radha Yu MD Loeys-Dietz syndrome (HC CODE) (Primary Dx); Obesity, unspecified class, unspecified obesity type, unspecified whether serious comorbidity present; At risk for aneurysm of ascending aorta 06/11/2025 12:35 PM EDT - 06/11/2025 11:59 PM EDT Hospital Encounter [facility] Echocardiography [address] [place] [address], [place] [address] Radha Yu MD Loeys-Dietz syndrome (HC CODE) Discharge Disposition: Home or Self Care 04/30/2025 [facility] [address] [address] Opal Tim MD Advice Only 04/17/2025 Telephone [facility] [address] [address] Opal Tim MD Advice Only from Last 3 Months Immunizations Immunization Administration Dates Next Due COVID-19 Vaccine - PFIZER 10/23/2021,02/16/2021, 01/26/2021 DTaP 02/13/2009, 5,2004,06/01,2004 H1N1 for historical documentation only 9 HPV9 03/24/2020,09/11/2019,03/21/2018 Hep A, ped/adol, 2 dose 02/13/2008,02/10/2007 Hep B, adolescent or pediatric 2004,2003,2004 Hib (PRP-T) 04/20/2005, 4,2004,03/27 Influenza, injectable, quad with preservative 09/11/2019,08/23/2017 Influenza, injectable, quadr ivalent, preservative free 10/08/2021,06/24/2020,09/23/2016 Influenza, live, intranasal, quadrivalent 09/23/2015 Influenza, live, trivalent, intranasal 0 07/02/2014,08/13/2013,06/29/2012,07/20 Influenza, seasonal, injecta ble, preservative free 09/15/2006,07/22/2005,2004,07/21 Influenza, trivalent, 0.25 m L (6-35MO) injectable, contains preservative 07/25/2010,07/26/2009,08/09/2008,09/01 MMR 02/13/2008,04/20/2005 Meningococcal B, OMV (Bexsero) 03/27/2021,2019 Meningococcal MCV4O - Menveo 03/24/2020,03/17/20 15 Pneumococcal conjugate PCV 13 04/20/2005 ,2004,2004,03/27 Polio (IPV) 02/13/2009, 5,2004,03/27 Tdap 03/17/2015 Varicella, live 02/13/2009,2005 Family History Medical History Relation Name Comments High cholesterol Father Dangelo Hypertension Father Dangelo Scoliosis Father Dangelo High cholesterol Maternal Aunt Diabetes Maternal Grandfather High cholesterol Maternal Grandfather Thyroid disease Maternal Grandfather Diabetes Maternal Grandmother Breast cancer Paternal Aunt no genetic te sting High cholesterol Paternal Aunt Heart disease Paternal Grandfather Hypertension Paternal Grandfather Other (data conversion) Paternal Grandfather prostate issues Cancer Paternal Grandmother thyroid Colon cancer Neg Hx Ovarian cancer Neg Hx Uterine cancer Neg Hx Relation Name Status Comments Father Dangelo Alive Maternal Aunt Maternal Grandfather Maternal Grandmother Mother Yas Alive Paternal Aunt Paternal Grandfather Paternal Grandmother Social History Tobacco Use Types Packs/Day Years Used Date Smoking Tobacco: Every Day Cigarettes Smokeless Tobacco: Never Tobacco Cessation:Ready to Q uit: Not Asked; Counseling Given: Not Answered Alcohol Use Standard Drinks/Week Comments Yes 0 (1 standard drink = 0.6 oz pur e alcohol) Overall Financial Resource Strain (CARDIA) Answe r Date Recorded How hard is it for you to pa y for the very basics like food, housing, medical care, and heating? Not hard at all 05/04/2022 PHQ-2 Answer Date Recorded PHQ-2 Total Score 3 06/11/2025 Hunger Vital Sign Answer Date Recorded Within [...] have a steady place to live 05/04/2022 Interpersonal Safety Answer Date Record ed Is there anyone in your life that is hurting or threatening you in anyway? Not on file 01/11/2023 Physical Indicators of Abuse No evidence of phys ical abuse 01/11/2023 Comments No Sex and Gender Information Value Date Recorded Sex Assigned at Female 03/30/2022 10:47 PM EDT Legal Sex Female 8:10 AM EDT Gender Identity Female 03/30/2022 10:47 PM EDT Sexual Orientation Lesbian or Hardy 03/30/2022 10 :47 PM EDT Last Filed Vital Signs Vital Sign Reading Time Taken Comments Blood Pressure 135/80 06/11/2025 12:45 PM EDT Pulse 90 06/11/2025 12:45 PM EDT Temperature 36.6 C (97.9 F) 06/11/2025 12:45 PM EDT Respiratory Rate 20 06/11/2025 12:4 5 PM EDT Oxygen Saturation 97% 06/11/2025 12: 45 PM EDT Inhaled Oxygen Concentration - - Weight 104.2 kg (229 lb 11.5 oz) 08/26/ 2025 12:45 PM EDT Height 175.9 cm (5' 9.25 ) 06/11/2025 1 2:45 PM EDT Body Mass Index 33.68 06/11/2025 12:45 PM EDT Plan of Treatment Upcoming Encounters Date Type Department Care Team (Late st Contact Info) Description 04/10/2026 11:00 AM EDT Office Visit [facility] of [address] [address] Opal Tim MD [address] [place] [phone] 06/17/2026 1:25 PM EDT Appointment [address] [place] [address] 06/17/2026 2:30 PM EDT Follow Up [facility] Cardiology - [address] [address] Radha Yu MD [address] [place] [phone] Health Maintenance Due Date Last Done Comments Pneumococcal Vaccine (2 - 49 years) (1 of 1 - PPSV23) 01/18/2010 04/20/2005, 2004, 2004, Additional history exists Hepatitis C screening 01/18/2022 Cervical cancer screening 01/18/2025 DTaP/TDaP Vaccines (7 - Td or Tdap) 03/17/2025 03/17/2015, 02/13/2009, 07/22/2005, Additional history exists Tetanus adult (Td q 10,TDAP once) 03/17/2025 03/17/2015, 02/13/2009, 07/22/2005, Additional history exists Influenza Vaccine Pediatric (#1) 2025 10/08/2021, 06/24/2020, 09/11/2019, Additional history exists Covid-19 vaccine series ( - 2024- season) 2025 10/23/2021, 02/16/2021, 01/26/2021 Chlamydia screening 03/30/2026 03/30/2025 RSV Immunization (1 - 1-dose 75+ series) 01/18/2079 Hepatitis B vaccine series Completed 10/23, 2004, 2004 HIB Vaccines Completed 04/20/2005, 02/2004, 2004, Additional history exists Hepatitis A Vaccines Completed 02/13/2008, 02/11/20 07 MMR Vaccines Completed 02/13/2008, 04/20/2005 IPV Vaccines Completed 02/13/2009, 03/2005, 2004, Additional history exists Varicella Vaccines Completed 02/13/2009, 2005 HPV vaccine series Completed 03/24/2020, 1 11/11/2018, 03/21/2018 Meningococcal Vaccine Completed 03/24/2020, 015 Meningococcal B Vaccine Completed 03/27/2021, 03/24 HIV screening Completed 03/30/2025 Rotavirus Vaccines Aged Out No longer eligible based on patient's age to complete this topic Procedures Procedure Name Priority Date/Time Associated Diagnosis Comments TRANSTHORACIC ECHO (TTE) COMPLETE W COLOR AND DOPPLER Routine 06/11/2025 1:55 PM EDT Loeys-Bentley syndrome (HC CODE) HIV 1/2 AG/AB, W/REFLEXES (Q) Routine 03/30/2025 12:00 AM EDT Possible exposure to STD C. TRACHOMATIS/N. GONORRHOEAE RNA BY TMA (Q) Routine 03/30/2025 12:00 AM EDT Possible exposure to STD from Last 3 Months or Most Recently Relevant to Health Maintenance Results * TRANSTHORACIC ECHO (TTE) COMPLETE W COLOR AND DOPPLER (06/11/2025 1:55 PM EDT) Anatomical Region Laterality Modality Chest Ultrasound 06/11/2025 12:3 5 PM EDT Narrative 06/11/2025 1:52 PM EDT * Follow up study for Loeys-Bentley syndrome * No aortic root or ascending aorta dilation * The aortic root measures 3.4 cm (Z score = 0.8). The ascending aorta measures 2.8 cm (Z score = 0.1). * The right ventricle is normal in size. There is no right ventricular hypertrophy. There is normal right ventricular systolic function. The septal motion is normal. The septal curvature is normal. * The left ventricle is normal in size. There is no left ventricular hypertrophy. There is normal left ventricular systolic function. The left ventricular diastolic function is mildly impaired. There is a decreased mitral E/A relationship. The left ventricular septal wall TDI has a reversed E'/A'. * No significant change compared to prior study dated: 04/10/2025. Diastolic abnormalities previously seen Procedure Note Kavitha Min MD - 06/11/2025 * Follow up study for Loeys-Bentley syndrome * No aortic root or ascending aorta dilation * The aortic root measures 3.4 cm (Z score = 0.8). The ascending aortameasures 2.8 cm (Z score = 0.1). * The right ventricle is normal in size. There is no right ventricularhypertrophy. There is normal right ventricular systolic function. Theseptal motion is normal. The septal curvature is normal. * The left ventricle is normal in size. There is no left ventricularhypertrophy. There is normal left ventricular systolic function. Theleft ventricular diastolic function is mildly impaired. There is adecreased mitral E/A relationship. The left ventricular septal wall TDIhas a reversed E'/A'. * No significant change compared to prior study dated: 04/10/2025.Diastolic abnormalities previously seen us Radha Yu MD CV ECHO ORDERABLES Final Re sult * HIV 1/2 ag/ab, w/reflexes (Q) (03/30/2025 12:00 AM EDT) HIV Ag/Ab, 4th Generation NON-REACT ALPESH NON-REACT ALPESH [facility] Comment: HIV-1 antigen and HIV-1/HIV-2 antibodies were not detected. There is no laboratory evidence of HIV infection. PLEASE NOTE: This information has been disclosed to you from records whose confidentiality may be protected by state law. If your state requires such protection, then the state law prohibits you from making any further disclosure of the information without the specific written consent of the person to whom it pertains, or as otherwise permitted by law. A general authorization for the release of medical or other information is NOT sufficient for this purpose. For additional information please refer to http://[employer].MeinProspekt/faq/FNY296 (This link is being provided for informational/ educational purposes only.) The performance of this assay has not been clinically validated in patients less than 2 years old. Blood 03/30/2025 03/30/2025 10: 11 AM EDT Narrative [facility] - 04/03/2025 7:51 PM EDT FASTING:YES FASTING: YES Resulting Agency Comment Performing Lab: Site ID: [id number] Name: [facility] Address: [address] [place] [id number] Director: Noni Garcia M.D. Opal Tim MD LAB BLOOD ORDERABLES [facility] al Result Performing Organization Address City/State/[facility] Co de Phone Number [facility] [address] [place] [address] * C. trachomatis/N. gonorrhoeae RNA by TMA, (Q) (03/30/2025 12:00 AM EDT) C. trachomatis RNA, TMA NOT DETECTED NOT DETECTED [facility] Neisseria gonorrhoeae RNA, TMA NOT DETECTED NOT DETECTED [facility] Comment [facility] Comment: The analytical performance characteristics of this assay, when used to test SurePath(TM) specimens have been determined by [facility] [facility]. The modifications have not been cleared or approved by the FDA. This assay has been validated pursuant to the CLIA regulations and is used for clinical purposes. For additional information, please refer to https://[employer].Amaru.Vinsula/faq/PDP401 (This link is being provided for information/ educational purposes only.) Culture URINE SPECIMEN / Unknown 03/30/2025 03/30/2025 10:11 AM EDT Narrative [facility] - 04/03/2025 7:51 PM EDT FASTING:YES FASTING: YES Resulting Agency Comment Performing Lab: Site ID: [id number] Name: [facility] Address: [address] [place] [phone] Director: Noni Garcia M.D. Opal Tim MD MICROBIOLOGY - GENERAL O RDERABLES Final Result [facility] [address] [place] [address], [facility] from Last 3 Months or Most Recently Relevant to Health Maintenance Insurance BS BCBS BS BS BS Advance Directives * Full ACLS (Latest Code Status on File) Date Activated Date Inactivated Comments 05/03/2022 11:54 AM 05/11/2022 2:44 PM * Full ACLS Date Activated Date Inactivated Comments 04/30/2022 12:51 AM 05/03/2022 11:53 AM Care Teams Photoengraving Supervisor Relationship Specialty Start Date End Date Opal Tim MD [address] [place] [phone] PCP - General Pediatrics 01/03/13
--- OUTSIDE RECORDS SUMMARY | 2025-07-14 14:09 | XMS_ITS | Encounter Summary ---
Author Organization Pediatric & Adolesce nt Medicine [facility] Address Unknown Care Team Providers Care Surveillance Specialist Name Role Phone Opal Tim MD Primary Care Provider + Encounter Details Date Type Department Care Team (Late st Contact Info) Description 01/12/2021 Scanned Document [facility] [place] [address] Opal Tim MD [address] [place] [phone] Social History Tobacco Use Types Packs/Day [...] EDT Office Visit [facility] Medicine [address] [address] Opal Tim MD [address] [place] [phone] 06/17/2026 1:25 PM EDT Appointment [facility] Echocardiography [address] [facility] 2nd [place] [address] 06/17/2026 2:30 PM EDT Follow Up [facility] Cardiology - [facility] [address] [facility] [address] [place] [address] Radha Yu MD [address] [phone] documented as of this encounter Visit Diagnoses [...] documented as of this encounter Care Teams Surveillance Specialist Relationship Specialty Start Date End Date Opal Tim MD [address] [facility] [address] [place] [phone] PCP - General Pediatrics 01/03/13 documented as of this encounter
--- OUTSIDE RECORDS SUMMARY | 2025-07-14 14:09 | XMS_ITS | Clinical Summary ---
Author Organization [facility] Address [address] [place] [address] Care Team Providers Care Rn Clinical Name Role Phone Opal Tim MD Primary Care Provider + Dana Perkins Unavailable [phone] Allergies No known active allergies Medications * This document contains information received from the source organization and may not represent a complete record from that organization. guanFACINE (INTUNIV) 4 MG 24 hr tablet Take 4 mg by mouth nightly. 1 Active dexmethylphenid ate (FOCALIN XR) 30 MG 24 hr capsule Take 30 mg by mouth every morning. 1 Active escitalopram (LEXAPRO) 5 MG tablet Take 5 mg by mouth every morning. 1 Active dexmethylphenid ate (FOCALIN) 5 MG tablet Take 5 mg by mouth daily as needed. Active melatonin 3 MG Tab tablet Take 3 mg by mouth nightly as needed (sleep). Active Acetaminophen (TYLENOL PO) Take 1 tablet by mouth 4 times daily (every 6 hours) as needed (pain). Active UNKNOWN TO PATIENT Apply topically nightly. Active escitalopram (LEXAPRO) 5 MG tablet Take 10 mg by mouth nightly. Active oxyCODONE-aceta minophen (PERCOCET) 5-325 mg per tablet Take 1 tablet by mouth Every 6 (six) to 8 (eight) hours as needed (pain). Active ibuprofen (MOTRIN) 200 MG tabletIndicatio ns:Injury of right glenoid labrum Take 1-2 tablets (200-400 mg total) by mouth 4 times daily (every 6 hours) as needed for mild pain. Do not start before February 03, 2022. 30 tablet 2 Active lamoTRIgine (LaMICtal) 25 MG tablet Take 50 mg by mouth daily. Active benzonatate (TESSALON) 200 MG capsuleIndicati ons:Acute bacterial bronchitis Take 1 capsule (200 mg total) by mouth 3 (three) times a day as needed for cough. 21 capsule 5 Active Active Problems No known active problems Immunizations Immunization Administration Dates Next Due Covid-19 MRNA Vaccine - Pfiz er 12+ (Purple Cap) 02/16/2021,01/26/2021 Hep B, Unspecified 2004,2004, 004 MMR 02/13/2008,04/20/2005 Varicella 02/13/2009,2005 Social History Tobacco Use Types Packs/Day Years [...] Orientation Heterosexual (straight) 03/22 1:49 PM EDT Last Filed Vital Signs Vital Sign Reading Time Taken Comments Blood Pressure 100/69 03/13/2025 10:47 AM EDT Pulse 86 03/13/2025 10:47 AM EDT Temperature 36.4 C (97.6 F) 03/13/2025 10:47 AM EDT Respiratory Rate 18 03/13/2025 10:47 AM EDT Oxygen Saturation 96% 03/13/2025 10:47 AM EDT Inhaled Oxygen Concentration - - Weight 104 kg (230 lb) 03/13/2025 10:47 AM EDT Height 175.3 cm (5' 9 ) 03/13/2025 10:47 AM EDT Body Mass Index 33.97 03/13/2025 10:47 AM EDT Plan of Treatment Health Maintenance Due Date Last Done Comments Hepatitis C Virus Screening 2004 HIV Screening 01/18/2017 HPV Vaccines (1 - 3-dose series) 01/18/2019 DTaP/Tdap/Td Vaccines (1 - Tdap) 01/18/2023 Pneumococcal Vaccine: Pediat wang (0-5 Years) and At-Risk Patients (6 to 49 Years) (1 of 2 - PCV) 01/18/2023 Pap Smear (Ages 21-65) 01/18/2025 Influenza Vaccine 05/17/2025 10/08/2021, , 09/11/2019, Additional history exists COVID-19 Vaccine (2024-2 6 season) 2025 10/23/2021, 02/16/2021, 01/26/2021 Hepatitis B Vaccines Completed 2004, 2004, 2004 MMR Vaccines Discontinued 02/13/2008, 04/20/2005 Varicella Vaccines Discontinued 02/13/2009, 2005 Influenza Vaccine Discontinued 10/08/2021, , 09/11/2019, Additional history exists Medical Devices Implanted Type Area Ventilation Equipment Tender Device Identifier Shelf Expiration Date Model / Serial / Lot Peek Whitethorn W Permacord- [id number] Implanted:Qty : 1 on 02/02/2022 by Dung Samuel MD at [facility] Right: Shoulder [employer] - A TALIA AN [id number] 08/16/2022 [id number] / [id number] / [employer] Advance Peek Whitethorn W Permacord 45 Mm - [id number] Implanted:Qty : 1 on 02/02/2022 by Dung Samuel MD at [facility] Right: Shoulder [employer] - A TALIA AN 04/15/2024 [id number] / / [id number] Peek Whitethorn W Permacord- [id number] Implanted:Qty : 1 on 02/02/2022 by Dung Samuel MD at [facility] Right: Shoulder [employer] - A TALIA AN [id number] 08/16/2022 [id number] / / Insurance [facility] [place] [address] [facility] HMO Care Teams Rn Clinical Relationship Specialty Start Date End Date Opal Tim MD PCP - General Pediatrics 11/15/16 Dana Perkins BS [address] [place] [address] Social Work 09/04/24
--- OUTSIDE RECORDS SUMMARY | 2025-07-14 14:09 | XMS_ITS | Encounter Summary ---
Author Organization Pediatric & Adolesce nt Medicine [facility] Address Unknown Care Team Providers Care Securities Consultant Name Role Phone Opal Tim MD Primary Care Provider + Encounter Details Date Type Department Care Team (Late st Contact Info) Description 03/22/2016 Scanned Document [facility] & [place] [address] Opal Tim MD [address] [place] [phone] Social History Tobacco Use Types Packs/Day [...] EDT Office Visit [facility] [address] [address] Opal Tim MD [address] [place] [phone] 06/17/2026 1:25 PM EDT Appointment [address] 2nd [place] [address] 06/17/2026 2:30 PM EDT Follow Up [facility] Cardiology - [facility] [address] [facility] 2nd [place] [address] Radha Yu MD [address] [phone] documented as of this encounter Visit Diagnoses [...] documented as of this encounter Care Teams Securities Consultant Relationship Specialty Start Date End Date Opal Tim MD [address] [phone] PCP - General Pediatrics 01/03/13 documented as of this encounter
--- OUTSIDE RECORDS SUMMARY | 2025-07-14 14:09 | XMS_ITS | Encounter Summary ---
Author Organization Pediatric & Adolesce nt Medicine [facility] Address Unknown Care Team Providers Care Chainstitch Hemmer Name Role Phone Opal Tim MD Primary Care Provider + Encounter Details Date Type Department Care Team (Late st Contact Info) Description 02/16/2022 Scanned Document [facility] [address] [address] Opal Tim MD [address] [place] [phone] Social History Tobacco Use Types Packs/Day Years [...] Office Visit [facility]oles[facility] Medicine [address] [address] Opal Tim MD [address] [place] [phone] 06/17/2026 1:25 PM EDT Appointment [facility] Echocardiography [address] 2nd [place] [address] 06/17/2026 2:30 PM EDT Follow Up [facility] Cardiology - [facility] [address] [facility] 2nd [place] [address] Radha Yu MD 1 [facility] 2 [place] [phone] documented as of this encounter Visit Diagnoses Not on filedocumented in this encounter Additional Health Concerns Infection Onset Date Last Indicated Resolved Time R/O COVID-19 04/30/2022 04/30/2022 04/30/2022 2:45 AM EDT R/O COVID-19 05/02/2022 05/02/2022 05/02/2022 7:42 AM EDT Assessment Noted Time PHQ-9 Depression Total Score: 1 12/08/19 22 2:19 PM EST documented as of this encounter Care Teams Chainstitch Hemmer Relationship Specialty Start Date End Date Opal Tim MD [address] [place] [phone] PCP - General Pediatrics 01/03/13 documented as of this encounter
--- OUTSIDE RECORDS SUMMARY | 2025-07-14 14:09 | XMS_ITS | Encounter Summary ---
Author Organization Pediatric & Adolesce nt Medicine [facility] Address Unknown Care Team Providers Care Spine Supervisor Name Role Phone Opal Tim MD Primary Care Provider + Encounter Details Date Type Department Care Team (Late st Contact Info) Description 09/16/2016 Scanned Document Pediatric [facility] [place] [address] Opal Tim MD [address] [place] [phone] Social History Tobacco Use Types Packs/Day [...] EDT Office Visit [facility] [address] [address] Opal Tim MD [address] [place] [phone] 06/17/2026 1:25 PM EDT Appointment [address]nd [place] [address] 06/17/2026 2:30 PM EDT Follow Up [facility] Cardiology - [facility] [address] [facility] 2nd [place] [address] Radha Yu MD [address] [phone] documented as of this encounter Visit Diagnoses [...] documented as of this encounter Care Teams Spine Supervisor Relationship Specialty Start Date End Date Opal Tim MD [address] [phone] PCP - General Pediatrics 01/03/13 documented as of this encounter
--- OUTSIDE RECORDS SUMMARY | 2025-07-14 14:09 | XMS_ITS | Encounter Summary ---
Author Organization Pediatric & Adolesce nt Medicine [facility] Address Unknown Care Team Providers Care Jointer Submarine Cable Name Role Phone Opal Tim MD Primary Care Provider + Encounter Details Date Type Department Care Team (Late st Contact Info) Description 03/02/2018 Scanned Document [facility] [place] [address] Opal Tim MD [address] [place] [phone] Social History Tobacco Use Types Packs/Day [...] Office Visit [facility] [address] [address] Opal Tim MD [address] [place] [phone] 06/17/2026 1:25 PM EDT Appointment [address] 2nd [place] [address] 06/17/2026 2:30 PM EDT Follow Up [facility] Cardiology - [facility] 35 [facility] 2nd [place] [address] Radha Yu MD [address] [phone] documented as of this encounter Visit Diagnoses [...] documented as of this encounter Care Teams Jointer Submarine Cable Relationship Specialty Start Date End Date Opal Tim MD [address] [phone] PCP - General Pediatrics 01/03/13 documented as of this encounter
--- OUTSIDE RECORDS SUMMARY | 2025-07-14 14:09 | XMS_ITS | Encounter Summary ---
Author Organization Pediatric & Adolesce nt Medicine [facility] Address Unknown Care Team Providers Care Assistant Professor Of Music Name Role Phone Opal Tim MD Primary Care Provider + Encounter Details Date Type Department Care Team ([facility] st Contact Info) Description 06/04/2022 Scanned Document [facility] Medicine [address] [phone] Opal Tim MD [address] [place] [phone] Social History Tobacco Use Types Packs/Day [...] Office Visit [facility] Medicine [address] [address] Opal Tim MD [address] [place] [phone] 06/17/2026 1:25 PM EDT Appointment [facility] Echocardiography [address] [place] [address] 06/17/2026 2:30 PM EDT Follow Up [facility] Cardiology - [address] [address] Radha Yu MD [address] [place] [phone] documented as of this encounter Visit Diagnoses Not on filedocumented in this encounter Additional Health Concerns Assessment Noted Time PHQ-9 Depression Total Score: 0 05/03/20 2:00 PM EDT documented as of this encounter Care Teams Assistant Professor Of Music Relationship Specialty Start Date End Date Opal Tim MD [address] [place] [phone] PCP - General Pediatrics 01/03/13 documented as of this encounter
--- OUTSIDE RECORDS SUMMARY | 2025-07-14 14:09 | XMS_ITS | Encounter Summary ---
Author Organization Pediatric & Adolesce nt Medicine [facility] Address Unknown Care Team Providers Care Nurse Monitoring Name Role Phone Opal Tim MD Primary Care Provider + Encounter Details Date Type Department Care Team ([facility] st Contact Info) Description 07/19/2022 Scanned Document [facility] [address] [phone] Opal Tim MD [address] [place] [phone] Social History Tobacco Use Types Packs/Day [...] EDT Office Visit [facility] Medicine [address] [address] Opal Tim MD [address] [place] [phone] 06/17/2026 1:25 PM EDT Appointment [facility] Echocardiography [address] [place] [address] 06/17/2026 2:30 PM EDT Follow Up [facility] Cardiology - [address] [address] Radha Yu MD [address] [place] [phone] documented as of this encounter Visit Diagnoses Not on filedocumented in this encounter Additional Health Concerns Assessment Noted Time PHQ-9 Depression Total Score: 0 05/03/20 2:00 PM EDT documented as of this encounter Care Teams Nurse Monitoring Relationship Specialty Start Date End Date Opal Tim MD [address] [place] [phone] PCP - General Pediatrics 01/03/13 documented as of this encounter
--- OUTSIDE RECORDS SUMMARY | 2025-07-14 14:09 | XMS_ITS | Encounter Summary ---
Author Organization Pediatric & Adolesce nt Medicine [facility] Address Unknown Care Team Providers Care Restaurant Crew Member Name Role Phone Opal Tim MD Primary Care Provider + Encounter Details Date Type Department Care Team (Late st Contact Info) Description 05/04/2017 Scanned Document Pediatric & [place] [address] Opal Tim MD [address] [place] [phone] Social History Tobacco Use Types Packs/Day [...] EDT Office Visit [facility] Medicine [address] [address] Opal Tim MD [address] [place] [phone] 06/17/2026 1:25 PM EDT Appointment [address] [place] [address] 06/17/2026 2:30 PM EDT Follow Up [facility] Cardiology - [facility] 35 [facility] [address] [place] [address] Radha Yu MD [address] [phone] documented as of this encounter Visit Diagnoses [...] documented as of this encounter Care Teams Restaurant Crew Member Relationship Specialty Start Date End Date Opal Tim MD [address] [phone] PCP - General Pediatrics 01/03/13 documented as of this encounter
--- OUTSIDE RECORDS SUMMARY | 2025-07-14 14:09 | XMS_ITS | Encounter Summary ---
Author Organization Pediatric & Adolesce nt Medicine [facility] Address Unknown Care Team Providers Care Call Center Coordinator Name Role Phone Opal Tim MD Primary Care Provider + Encounter Details Date Type Department Care Team (Late st Contact Info) Description 01/11/2018 Scanned Document Pediatric & [place] [address] Opal Tim MD [address] [place] [phone] Social History Tobacco Use Types Packs/Day [...] Office Visit [facility] Medicine [address] [address] Opal Tim MD [address] [place] [phone] 06/17/2026 1:25 PM EDT Appointment [address] 2nd [place] [address] 06/17/2026 2:30 PM EDT Follow Up [facility] Cardiology - [facility] 35 [facility] 2nd [place] [address] Radha Yu MD [address] [phone] documented as of this encounter Visit Diagnoses [...] documented as of this encounter Care Teams Call Center Coordinator Relationship Specialty Start Date End Date Opal Tim MD [address] [phone] PCP - General Pediatrics 01/03/13 documented as of this encounter
--- OUTSIDE RECORDS SUMMARY | 2025-07-14 14:09 | XMS_ITS | Encounter Summary ---
Author Organization [facility] Address [address] [place] [address] Care Team Providers Care Charge Account Clerk Name Role Phone Opal Tim MD Primary Care Provider + Dana Perkins BS Unavailable [phone] Encounter Details Date Type Department Care Team (Late st Contact Info) Description 03/13/2025 Scanned Document [address] [place] [phone] Provider, Generic Social History Tobacco Use [...] on filedocumented in this encounter Care Teams Charge Account Clerk Relationship Specialty Start Date End Date Opal Tim MD PCP - General Pediatrics 11/15/16 Dana Perkins BS [address] [place] [address] Social Work 09/04/24 documented as of this encounter
--- OUTSIDE RECORDS SUMMARY | 2025-07-14 14:09 | XMS_ITS | Encounter Summary ---
Author Organization Pediatric & Adolesce nt Medicine [facility] Address Unknown Care Team Providers Care Manager Farm Name Role Phone Opal Tim MD Primary Care Provider + Encounter Details Date Type Department Care Team ([facility] st Contact Info) Description 07/19/2022 Scanned Document [facility] Medicine [address] [phone] Opal Tim MD [address] [place] [phone] Social History Tobacco Use Types Packs/Day [...] EDT Office Visit Pediatric [facility] Adolescent Medicine [address] [address] Opal Tim MD [address] [place] [phone] 06/17/2026 1:[address] [facility] Echocardiography [address] [place] [address] 06/17/2026 2:30 PM EDT Follow Up [facility] [place] Cardiology - [address] [address] Radha Yu MD [address] [place] [phone] documented as of this encounter Visit Diagnoses Not on filedocumented in this encounter Additional Health Concerns Assessment Noted Time PHQ-9 Depression Total Score: 0 05/03/20 2:00 PM EDT documented as of this encounter Care Teams Manager Farm Relationship Specialty Start Date End Date Opal Tim MD [address] [place] [phone] PCP - General Pediatrics 01/03/13 documented as of this encounter
[2025-07-14 14:18] LABS: Cannabinoid Screen Urine POSITIVE (Not Detect)
[2025-07-14 14:24] LABS: IDNOW Serial# 58CA691E; Influenza B2 Negative (Negative)
[2025-07-14 14:30] LABS: COVID-19 Test Negative (Negative); IDNOW Serial# 6674DD1D
[2025-07-14] MEDS: Magnesium Hydrox/Alum Hydrox 30 ML ORAL.SUSP 15 ML PO (15:18)
[2025-07-14 15:49] LABS: MANUAL DIFF FLAG NO
[2025-07-14 15:51] LABS: Hematocrit 40.8 % (37.0-47.0); Hemoglobin 15.0 g/dl (12.0-16.0); Imm Gran Abs Auto 0.05 X10*3/uL (0.00-0.03); Imm Gran Pct Auto 0.3 % (0.0-0.4); Lymphocytes Absolute Auto 2.4 X10*3/uL (1.2-4.9); Mean Corpuscular HGB Conc 36.8 g/dl (31.0-35.0); Mean Corpuscular Hemoglobin 28.8 pg (27.0-33.0); Mean Corpuscular Volume 78.5 fL (80.0-98.0); NRBC Abs Auto 0.000 X10*3/uL (0.0-0.012); NRBC Pct Auto 0.0 /100WBC (0.0-0.2); Platelet Count 323 X10*3/uL (160-400); Red Blood Count 5.20 X10*6/uL (4.20-5.50); White Blood Count 14.9 X10*3/uL (4.8-10.8)
[2025-07-14 16:15] LABS: Alanine Aminotransferase 26 U/L (0-31); Albumin Level 4.5 g/dL (3.5-5.0); Alkaline Phosphatase 77 U/L (39-117); Anion Gap 13 (12-20); Aspartate Amino Transferase 23 U/L (5-31); Blood Urea Nitrogen 10 mg/dL (9-16); Calcium 9.3 mg/dL (8.4-10.2); Carbon Dioxide 23 mmol/L (22-29); Chloride 106 mmol/L (96-108); Creatinine Clr Calc Pharmacy 145.4; Estimated Glomerular Filt Rate > 60; Lipase 10 U/L (8-78); Potassium 3.9 mmol/L (3.3-5.1); Sodium 138 mmol/L (135-145); Total Protein 7.3 g/dL (6.5-8.0)
--- NOTE | 2025-07-14 16:25 | PC.NURSE ---
patient tolerated po challenge
[2025-07-14 16:35] VITALS: BP 140/87; PULSE 80; RESP 18; TEMP 36.4; O2SAT 98
== END 2025-07-14 16:36 | disposition home or self-care (01) ==
PROVIDERS: Nurse Practitioner Family; Physician Assistant; Emergency Provider Emergency Medicine; PCP Pediatrics
DX: R11.15 Cyclical vomiting syndrome unrelated to migraine (principal); R11.2 Nausea with vomiting, unspecified; Z79.899 Other long term (current) drug therapy
CPT/HCPCS: 36415; 70360; 71046; 80053; 80307; 83690; 84702; 85025; 87502; 87635; 93005; 99283

== ENCOUNTER → 2025-07-14 13:45 | Outpatient (BNV) | payer BC, SELFPAY | PROVIDERS: Emergency Provider Emergency Medicine; PCP Pediatrics; Visit Provider Radiology Diagnostic Radiology | DX: R07.9 Chest pain, unspecified (principal); R11.10 Vomiting, unspecified | CPT/HCPCS: 70360; 71046 ==

== ENCOUNTER → 2025-07-14 13:45 | Outpatient (BNV) | payer BC, SELFPAY | PROVIDERS: Emergency Provider Emergency Medicine; PCP Pediatrics; Visit Provider Internal Medicine Cardiovascular Disease | DX: R07.9 Chest pain, unspecified (principal) | CPT/HCPCS: 93010 ==

== ENCOUNTER 2025-08-23 21:39 | Emergency (ER) | payer BC, SELFPAY ==
--- NOTE | ~2025-08-23 | CT_ITS ---
CLINICAL HISTORY: L adnexal ttp. ?TOA pt became nauseous during iv contrast injection, late phase scan CT abdomen and pelvis with contrast Comparison: None provided Findings: The lung bases are clear. There is a small hiatal hernia. The liver, gallbladder, pancreas, spleen, adrenal glands, and kidneys are unremarkable. The appendix is normal. The remainder of the gastrointestinal tract is unremarkable. There is no free fluid or free air. Uterus and adnexa are unremarkable. There is no abscess. There are no enlarged lymph nodes. The bladder is unremarkable. The aorta and IVC are normal. There is a small fat containing umbilical hernia. There is no fracture or suspicious lytic or sclerotic lesion. IMPRESSION: 1. No acute abnormality in the abdomen or pelvis. 2. Small hiatal hernia. This document has been electronically signed by: Tim Coronado MD on 08/24/2025 00:53:12
[2025-08-23 21:43] VITALS: BP 125/76; PULSE 92; RESP 18; TEMP 36.7; O2SAT 97; BMI 34.0
--- OUTSIDE RECORDS SUMMARY | 2025-08-23 22:00 | XMS_ITS | Encounter Summary ---
Author Organization Pediatric & Adolesce nt Medicine [facility] Address Unknown Care Team Providers Care Distance Learning Unit Leader Name Role Phone Opal Tim MD Primary Care Provider + Encounter Details Date Type Department Care Team (Late st Contact Info) Description 05/07/2021 Scanned Document Pediatric [place] [address] Opal Tim MD [address] [place] [phone] Social History Tobacco Use Types Packs/Day [...] EDT Office Visit Pediatric [place] [address] Opal Tim MD [address] [place] [phone] 06/17/2026 1:25 PM EDT Appointment [facility] Echocardiography 35 [facility] 2nd [place] [address] 06/17/2026 2:30 PM EDT Follow Up [facility] Cardiology - [facility] 35 [facility] 2nd [place] [address] Radha Yu MD [address] [phone] documented as of this encounter Visit Diagnoses [...] documented as of this encounter Care Teams Distance Learning Unit Leader Relationship Specialty Start Date End Date Opal Tim MD 6[address] [facility] 4 [place] [address] PCP - General Pediatrics 01/03/13 documented as of this encounter
--- OUTSIDE RECORDS SUMMARY | 2025-08-23 22:00 | XMS_ITS | Encounter Summary ---
Author Organization [facility] Address [address] [place] [address] Care Team Providers Care Fishing Reel Assembler Name Role Phone Opal Tim MD Primary Care Provider + Dana Perkins BS Unavailable [phone] Encounter Details Date Type Department Care Team (Late st Contact Info) Description 01/29/2022 Prep for Surgery [facility] [address] [place] [phone] Amy Ramos RN [address] [place] [phone] Social History Tobacco Use Types Packs/Day Years [...] on filedocumented in this encounter Care Teams Fishing Reel Assembler Relationship Specialty Start Date End Date Opal Tim MD PCP - General Pediatrics 11/15/16 Dana Perkins BS [address] [place] [address] Social Work 09/04/24 documented as of this encounter
--- OUTSIDE RECORDS SUMMARY | 2025-08-23 22:00 | XMS_ITS | Encounter Summary ---
Author Organization Pediatric & Adolesce nt Medicine [facility] Address Unknown Care Team Providers Care Stem Mounter Name Role Phone Opal Tim MD Primary Care Provider + Encounter Details Date Type Department Care Team (Late st Contact Info) Description 07/07/2021 Scanned Document Pediatric & [place] [address] Opal Tim MD [address] [place] [phone] Social History Tobacco Use Types Packs/Day [...] EDT Office Visit Pediatric & [place] [address] Opal Tim MD [address] [place] [phone] 06/17/2026 1:25 PM EDT Appointment [facility] Echocardiography 35 [facility] 2nd [place] [address] 06/17/2026 2:30 PM EDT Follow Up [facility] Cardiology - [facility] 35 [facility] [address]nd [place] [address] Radha Yu MD [address] [phone] documented as of this encounter Visit Diagnoses [...] documented as of this encounter Care Teams Stem Mounter Relationship Specialty Start Date End Date Opal Tim MD [address] [facility] 4 [place] [address] PCP - General Pediatrics 01/03/13 documented as of this encounter
--- OUTSIDE RECORDS SUMMARY | 2025-08-23 22:00 | XMS_ITS | Encounter Summary ---
Author Organization Pediatric & Adolesce nt Medicine [facility] Address Unknown Care Team Providers Care Delivery Professional Name Role Phone Opal Tim MD Primary Care Provider + Encounter Details Date Type Department Care Team (Late st Contact Info) Description 01/12/2021 Scanned Document Pediatric [facility] [place] [address] Opal Tim MD [address] [place] [phone] Social History Tobacco Use Types Packs/Day [...] EDT Office Visit [facility] Medicine [address] [address] Opal Tim MD [address] [place] [phone] 06/17/2026 1:25 PM EDT Appointment [facility] Echocardiography 35 [facility] 2nd [facility] [address] 06/17/2026 2:30 PM EDT Follow Up [facility] Cardiology - [facility] 35 [facility] 2nd [facility] [address] Radha Yu MD [address] [phone] documented as of this encounter Visit Diagnoses [...] documented as of this encounter Care Teams Delivery Professional Relationship Specialty Start Date End Date Opal Tim MD 6[address] [facility] 4 [place] [address] PCP - General Pediatrics 01/03/13 documented as of this encounter
--- OUTSIDE RECORDS SUMMARY | 2025-08-23 22:00 | XMS_ITS | Clinical Summary ---
Author Organization [facility] Address [address] [place] [address] Care Team Providers Care Hot Mill Observer Name Role Phone Opal Tim MD Primary Care Provider + Dana Perkins Unavailable [phone] Allergies No known active allergies Medications * [...] history exists Medical Devices Implanted Type Area Oil Refinery Process Technician Device Identifier Shelf Expiration Date Model / Serial / Lot Peek [place] W Permacord- [id number] Implanted:Qty : 1 on 02/02/2022 by Dung Samuel MD at [facility] Right: Shoulder [employer] - A [id number] 08/16/2022 [id number] / [id number] / [employer] Advance Peek [place] W Permacord 45 Mm - [id number] Implanted:Qty : 1 on 02/02/2022 by Dung Samuel MD at [facility] Right: Shoulder [employer]PU[employer]INT [employer] - A 04/15/2024 [id number] / / [id number] Peek [place] W Permacord- [id number] Implanted:Qty : 1 on 02/02/2022 by Dung Samuel MD at [facility] Right: Shoulder [employer] JOINT [employer] - A [id number] 08/16/2022 [id number] / / Insurance [facility] [place] [address] [facility] Care Teams Hot Mill Observer Relationship Specialty Start Date End Date Opal Tim MD PCP - General Pediatrics 11/15/16 Dana Perkins BS [address] [place], [place] [phone] Social Work 09/04/24
--- OUTSIDE RECORDS SUMMARY | 2025-08-23 22:00 | XMS_ITS | Encounter Summary ---
Author Organization Pediatric & Adolesce nt Medicine [facility] Address Unknown Care Team Providers Care Fence Setter Name Role Phone Opal Tim MD Primary Care Provider + Encounter Details Date Type Department Care Team (Late st Contact Info) Description 11/12/2019 Scanned Document Pediatric & [place] [address] Opal Tim MD [address] [place] [phone] Social History Tobacco Use Types Packs/Day [...] EDT Office Visit Pediatric [facility] Adolescent Medicine [address] [address] Opal Tim MD [address] [place] [phone] 06/17/2026 1:25 PM EDT Appointment [facility] Echocardiography [address] [place] [address], [place] [address] 06/17/2026 2:30 PM EDT Follow Up [facility] Cardiology - [address] [place] [address] Radha Yu MD [address] [phone] documented as of this encounter Visit Diagnoses [...] documented as of this encounter Care Teams Fence Setter Relationship Specialty Start Date End Date Opal Tim MD 677 [address] [facility] 4 [place] [address] PCP - General Pediatrics 01/03/13 documented as of this encounter
--- OUTSIDE RECORDS SUMMARY | 2025-08-23 22:00 | XMS_ITS | Encounter Summary ---
Author Organization Pediatric & Adolesce nt Medicine [facility] Address Unknown Care Team Providers Care Weaver Hand Loom Name Role Phone Opal Tim MD Primary Care Provider + Encounter Details Date Type Department Care Team (Late st Contact Info) Description 05/08/2021 Scanned Document Pediatric & [place] [address] Opal Tim MD [address] [place] [phone] Social History Tobacco Use Types Packs/Day [...] EDT Office Visit [facility] [place] [address] Opal Tim MD [address] [place] [phone] 06/17/2026 1:25 PM EDT Appointment [facility] Echocardiography 35 [facility] 2nd [place] [address] 06/17/2026 2:30 PM EDT Follow Up [facility] Cardiology - [facility] 35 [facility] 2nd [place] [address] Radha Yu MD [address] [phone] documented as of this encounter Visit Diagnoses [...] documented as of this encounter Care Teams Weaver Hand Loom Relationship Specialty Start Date End Date Opal Tim MD [address] [facility] 4 [place] [address] PCP - General Pediatrics 01/03/13 documented as of this encounter
--- OUTSIDE RECORDS SUMMARY | 2025-08-23 22:00 | XMS_ITS | Encounter Summary ---
Author Organization [facility] Address [address] [place] [address] Care Team Providers Care Gas Pumper Name Role Phone Opal Tim MD Primary Care Provider + Dana Perkins BS Unavailable [phone] Encounter Details Date Type Department Care Team (Late st Contact Info) Description 03/13/2025 Scanned Document [address] [place] [phone] Provider, Generic Social History Tobacco Use [...] on filedocumented in this encounter Care Teams Gas Pumper Relationship Specialty Start Date End Date Opal Tim MD PCP - General Pediatrics 11/15/16 Dana Perkins BS [address] [place] [address] Social Work 09/04/24 documented as of this encounter
--- OUTSIDE RECORDS SUMMARY | 2025-08-23 22:00 | XMS_ITS | Encounter Summary ---
Author Organization Pediatric & Adolesce nt Medicine [facility] Address Unknown Care Team Providers Care Service Car Operator Name Role Phone Opal Tim MD Primary Care Provider + Encounter Details Date Type Department Care Team (Late st Contact Info) Description 05/25/2021 Scanned Document Pediatric & [place] [address] Opal Tim MD [address] [place] [phone] Social History Tobacco Use Types Packs/Day [...] EDT Office Visit [facility] & [place] [address] Opal Tim MD [address] [place] [phone] 06/17/2026 1:25 PM EDT Appointment [facility] Echocardiography 35 [facility] 2nd [place] [address] 06/17/2026 2:30 PM EDT Follow Up [facility] Cardiology - [facility] 35 [facility] 2nd [place] [address] Radha Yu MD [address] [phone] documented as of this encounter Visit Diagnoses [...] documented as of this encounter Care Teams Service Car Operator Relationship Specialty Start Date End Date Opal Tim MD [address] [facility] 4 [place] [address] PCP - General Pediatrics 01/03/13 documented as of this encounter
--- OUTSIDE RECORDS SUMMARY | 2025-08-23 22:00 | XMS_ITS | Encounter Summary ---
Author Organization [facility] Address [address] [place] [address] Care Team Providers Care Blending Tank Helper Name Role Phone Opal Tim MD Primary Care Provider + Dana Perkins BS Unavailable [phone] Encounter Details Date Type Department Care Team (Late st Contact Info) Description 03/13/2025 Scanned Document [address] [place] [phone] Provider, Generic Social History Tobacco Use [...] on filedocumented in this encounter Care Teams Blending Tank Helper Relationship Specialty Start Date End Date Opal Tim MD PCP - General Pediatrics 11/15/16 Dana Perkins BS [address] [place] [address] Social Work 09/04/24 documented as of this encounter
--- OUTSIDE RECORDS SUMMARY | 2025-08-23 22:00 | XMS_ITS | Encounter Summary ---
Author Organization [facility] Address [address] [place] [phone] Care Team Providers Care Community Mental Health Social Worker Name Role Phone Opal Tim MD Primary Care Provider + Encounter Details Date Type Department Care Team (Late st Contact Info) Description 05/26/2021 Scanned Document [facility] SCHEDULING [address] [place] [address] Opal Tim MD [address] [place] [phone] Social History Tobacco Use Types Packs/Day [...] Office Visit [facility] Medicine of [address] [address] Opal Tim MD [address] [place] [phone] 06/17/2026 1:25 PM EDT Appointment [facility] 35 [facility] 2nd [place] [address] 06/17/2026 2:30 PM EDT Follow Up [facility] - [address] [place] [address] Radha Yu MD [address] [phone] documented as of this encounter Visit Diagnoses [...] documented as of this encounter Care Teams Community Mental Health Social Worker Relationship Specialty Start Date End Date Opal Tim MD [address] [facility] 4 [place] [address] PCP - General Pediatrics 01/03/13 documented as of this encounter
--- OUTSIDE RECORDS SUMMARY | 2025-08-23 22:00 | XMS_ITS | Encounter Summary ---
Author Organization [facility] Address [address] [place] [address] Care Team Providers Care Violin Repairer Name Role Phone Opal Tim MD Primary Care Provider + Dana Perkins BS Unavailable [phone] Encounter Details Date Type Department Care Team (Late st Contact Info) Description 03/13/2025 Scanned Document [address] [place] [phone] Provider, Generic Social History Tobacco Use [...] on filedocumented in this encounter Care Teams Violin Repairer Relationship Specialty Start Date End Date Opal Tim MD PCP - General Pediatrics 11/15/16 Dana Perkins BS [address] [place] [address] Social Work 09/04/24 documented as of this encounter
--- OUTSIDE RECORDS SUMMARY | 2025-08-23 22:00 | XMS_ITS | Encounter Summary ---
Author Organization Pediatric & Adolesce nt Medicine [facility] Address Unknown Care Team Providers Care Shop Superintendent Name Role Phone Opal Tim MD Primary Care Provider + Encounter Details Date Type Department Care Team (Late st Contact Info) Description 10/14/2021 Scanned Document [facility] [address] [address] Opal Tim MD [address] [place] [phone] Social History Tobacco Use Types Packs/Day Years [...] Office Visit [facility] Medicine of [address] [place] [address] Opal Tim MD [address] [place] [phone] 06/17/2026 1:25 PM EDT Appointment [facility] Echocardiography 35 [facility] 2nd [place] [address] 06/17/2026 2:30 PM EDT Follow Up [facility] Cardiology - [facility] 35 [facility] 2nd [place] [address] Radha Yu MD [address] [phone] documented as of this encounter Visit Diagnoses Not on filedocumented in this encounter Additional Health Concerns Infection Onset Date Last Indicated Resolved Time R/O COVID-19 04/30/2022 04/30/2022 04/30/2022 2:45 AM EDT R/O COVID-19 05/02/2022 05/02/2022 05/02/2022 7:42 AM EDT documented as of this encounter Care Teams Shop Superintendent Relationship Specialty Start Date End Date Opal Tim MD [address] [place] [phone] PCP - General Pediatrics 01/03/13 documented as of this encounter
--- OUTSIDE RECORDS SUMMARY | 2025-08-23 22:00 | XMS_ITS | Encounter Summary ---
Author Organization Pediatric & Adolesce nt Medicine [facility] Address Unknown Care Team Providers Care Car Storer Name Role Phone Opal Tim MD Primary Care Provider + Encounter Details Date Type Department Care Team (Late st Contact Info) Description 05/11/2021 Scanned Document [facility] & [place] [address] Opal Tim MD [address] [place] [phone] Social History Tobacco Use Types Packs/Day [...] EDT Office Visit [facility] [place] [address] Opal Tim MD [address] [place] [phone] 06/17/2026 1:25 PM EDT Appointment [facility] Echocardiography 35 [facility] 2nd [place] [address] 06/17/2026 2:30 PM EDT Follow Up [facility] Cardiology - [facility] 35 [facility] 2nd [place] [address] Radha Yu MD [address] [phone] documented as of this encounter Visit Diagnoses [...] documented as of this encounter Care Teams Car Storer Relationship Specialty Start Date End Date Opal Tim MD 6[address] [facility] 4 [place] [phone] PCP - General Pediatrics 01/03/13 documented as of this encounter
--- OUTSIDE RECORDS SUMMARY | 2025-08-23 22:00 | XMS_ITS | Encounter Summary ---
Author Organization [facility] Address [address] [place] [address] Care Team Providers Care Choker Setter Name Role Phone Opal Tim MD Primary Care Provider + Dana Perkins BS Unavailable [phone] Encounter Details Date Type Department Care Team (Late st Contact Info) Description 03/13/2025 Scanned Document [address] [place] [phone] Provider, Generic Social History Tobacco Use [...] on filedocumented in this encounter Care Teams Choker Setter Relationship Specialty Start Date End Date Opal Tim MD PCP - General Pediatrics 11/15/16 Dana Perkins BS [address] [address] Social Work 09/04/24 documented as of this encounter
--- OUTSIDE RECORDS SUMMARY | 2025-08-23 22:00 | XMS_ITS | Encounter Summary ---
Author Organization Pediatric & Adolesce nt Medicine [facility] Address Unknown Care Team Providers Care Black Puller Name Role Phone Opal Tim MD Primary Care Provider + Encounter Details Date Type Department Care Team (Late st Contact Info) Description 05/25/2021 Scanned Document [facility] & [place] [address] Opal Tim MD [address] [place] [phone] Social History Tobacco Use Types Packs/Day [...] EDT Office Visit [facility] [place] [address] Opal Tim MD [address] [place] [phone] 06/17/2026 1:25 PM EDT Appointment [facility] Echocardiography 35 [facility] 2nd [facility] [place] [address] 06/17/2026 2:30 PM EDT Follow Up [facility] Cardiology - [facility] 35 [facility] 2nd [place] [address] Radha Yu MD [address] [phone] documented as of this encounter Visit Diagnoses [...] documented as of this encounter Care Teams Black Puller Relationship Specialty Start Date End Date Opal Tim MD 6[address] [facility] 4 [place] [phone] PCP - General Pediatrics 01/03/13 documented as of this encounter
--- OUTSIDE RECORDS SUMMARY | 2025-08-23 22:00 | XMS_ITS | Encounter Summary ---
Author Organization Pediatric & Adolesce nt Medicine [facility] Address Unknown Care Team Providers Care Manager Battery Name Role Phone Opal Tim MD Primary Care Provider + Encounter Details Date Type Department Care Team (Late st Contact Info) Description 04/08/2020 Scanned Document [facility] & [place]olescent [place] [address] Opal Tim MD [address] [place] [phone] Social History Tobacco Use Types Packs/Day Years [...] EDT Office Visit Pediatric & Adolescent Medicine [facility], [address] [place] [address] Opal Tim MD [address] [place] [address] 4 [place] [address] 06/17/2026 1:25 PM EDT Appointment [address] 2nd [place] [address] 06/17/2026 2:30 PM EDT Follow Up [facility] Cardiology - [address] 2nd [place] [address] Radha Yu MD [address] [place] [phone] documented as of this encounter Visit Diagnoses [...] as of this encounter Care Teams Manager Battery Relationship Specialty Start Date End Date Opal Tim MD [address] [place] [address] 4 [place] [address] PCP - General Pediatrics 01/03/13 documented as of this encounter
--- OUTSIDE RECORDS SUMMARY | 2025-08-23 22:01 | XMS_ITS | Encounter Summary ---
Author Organization [facility] Address [address] [place] [phone] Care Team Providers Care Cyber Security Analyst Name Role Phone Opal Tim MD Primary Care Provider + Reason for Referral * General (Routine) - Closed Specialty Diagnoses / Procedures Referred By Contac t Referred To Contact Diagnoses Altered mental state Procedures EEG Opal Tim MD [address] [phone] Phone: tel: fax: Referral ID Status Reason Start Date Expiration Date Visits Re quested Visits Authorized [id number] Closed 01/05/2013 01/05/2014 1 1 Encounter Details Date Type Department Care Team (Latest Contact Info) Description 01/05/2013 Transcribed Orders [facility] [address] [address] Opal Tim MD [address] [phone] Altered mental state (Primary Dx) [...] Upcoming Encounters Date Type Department Care Team ([facility] st Contact Info) Description 04/10/2026 11:00 AM EDT Office Visit Pediatric & Adolescent Medicine [address] [address] Opal Tim MD [address] [place] [phone] 06/17/2026 1:25 PM EDT Appointment [address] [address] 06/17/2026 2:30 PM EDT Follow Up [facility] Cardiology - [address] [address] Radha Yu MD [address] [place] [phone] documented as of this encounter Results * EEG (YTX,SRC, ONLY) (01/30/2013 6:07 PM EDT) Narrative Rukhsana Sanchez MD - 01/30/2013 6:07 PM EDT Rukhsana Sanchez MD 01/30/2013 6:07 PM Electroencephalography Report [address] ([place] [address])[place] [address] Name: Doreen Her Unit Number: [id number] Date of : 2005 Date of Study: [...] - 01/30/2013 6:07 PM EDT Electroencephalography Report [facility], [address] [place] [address] ([facility] 2)[place] [address] Name: Doreen Her Unit Number: [id number] Date of : 2005 Date of Study: [...] documented as of this encounter Care Teams Cyber Security Analyst Relationship Specialty Start Date End Date Opal Tim MD [address] [phone] PCP - General Pediatrics 01/03/13 documented as of this encounter
--- OUTSIDE RECORDS SUMMARY | 2025-08-23 22:01 | XMS_ITS | Encounter Summary ---
Author Organization Pediatric & Adolesce nt Medicine [facility] Address Unknown Care Team Providers Care Audience Development Manager Name Role Phone Opal Tim MD Primary Care Provider + Encounter Details Date Type Department Care Team (Late st Contact Info) Description 07/15/2025 Scanned Document Pediatric [place] [address] Obtain, Unable To Social History Tobacco Use Types Packs/Day Years Used Date Smoking Tobacco: Every Day Cigarettes Smokeless Tobacco: Never Alcohol Use Standard Drinks/Week Comments Yes 0 [...] Upcoming Encounters Date Type Department Care Team ([facility] Contact Info) Description 04/10/2026 11:00 AM EDT Office Visit Pediatric & Adolescent Medicine [address] [address] Opal Tim MD [address] [place] [phone] 06/17/2026 1:25 PM EDT Appointment [facility] Echocardiography [address] [place] [address] 06/17/2026 2:30 PM EDT Follow Up [facility] Cardiology - [address] [address] Radha Yu MD [address] [place] [phone] documented as of this encounter Procedures Procedure Name Priority Date/Time Associated Diagnosis Comments XR CHEST PA AND LATERAL Routine 07/14/2025 10:47 AM EDT XR NECK SOFT TISSUE Routine 07/14/2025 10:47 AM EDT documented in this encounter Results * XR Neck Soft Tissue (07/14/2025 10:47 AM EDT) Anatomical Region Laterality Modality Neck, C-spine, Ortho Neck Digita l Radiography us Unable To Obtain IMG DIAGNOSTIC IMAGING ORDERABL ES Final Result * XR Chest PA and Lateral (07/14/2025 10:47 AM EDT) Anatomical Region Laterality Modality Chest Digital Radiogra phy us Unable To Obtain IMG DIAGNOSTIC IMAGING ORDERABL ES Final Result documented in this encounter Visit Diagnoses Not on filedocumented in this encounter Additional Health Concerns Assessment Noted Time PHQ-9 Depression Total Score: 12 025 12:40 PM EDT documented as of this encounter Care Teams Audience Development Manager Relationship Specialty Start Date End Date Opal Tim MD [address] [place] [phone] PCP - General Pediatrics 01/03/13 documented as of this encounter
--- OUTSIDE RECORDS SUMMARY | 2025-08-23 22:01 | XMS_ITS | Encounter Summary ---
Author Organization Pediatric & Adolesce nt Medicine [facility] Address Unknown Care Team Providers Care Mirror Silverer Name Role Phone Opal Tim MD Primary Care Provider + Encounter Details Date Type Department Care Team (Late st Contact Info) Description 11/16/2016 Scanned Document Pediatric & [place] [address] Opal Tim MD [address] [place] [phone] Social History Tobacco Use Types Packs/Day [...] Office Visit [facility] Medicine [address] [address] Opal Tim MD [address] [place] [phone] 06/17/2026 1:25 PM EDT Appointment [address] [place] [address] 06/17/2026 2:30 PM EDT Follow Up [facility] Cardiology - [facility] 35 [facility] [address] [place] [address] Radha Yu MD [address] [phone] documented as of this encounter Visit Diagnoses [...] documented as of this encounter Care Teams Mirror Silverer Relationship Specialty Start Date End Date Opal Tim MD [address] [phone] PCP - General Pediatrics 01/03/13 documented as of this encounter
--- OUTSIDE RECORDS SUMMARY | 2025-08-23 22:01 | XMS_ITS | Encounter Summary ---
Author Organization Pediatric & Adolesce nt Medicine [facility] Address Unknown Care Team Providers Care Basket Assembler Name Role Phone Opal Tim MD Primary Care Provider + Encounter Details Date Type Department Care Team (Late st Contact Info) Description 09/16/2016 Scanned Document Pediatric & [place] [address] Opal Tim MD [address] [place] [phone] Social History Tobacco Use Types Packs/Day [...] Office Visit [facility] Medicine [address] [address] Opal Tim MD [address] [place] [phone] 06/17/2026 1:25 PM EDT Appointment [address] 2nd [facility] [place] [address] 06/17/2026 2:30 PM EDT Follow Up [facility] Cardiology - [facility] 35 [facility] 2nd [facility] [place] [address] Radha Yu MD [address] [phone] documented as of this encounter Visit Diagnoses [...] documented as of this encounter Care Teams Basket Assembler Relationship Specialty Start Date End Date Opal Tim MD [address] [phone] PCP - General Pediatrics 01/03/13 documented as of this encounter
--- OUTSIDE RECORDS SUMMARY | 2025-08-23 22:01 | XMS_ITS | Encounter Summary ---
Author Organization Pediatric & Adolesce nt Medicine [facility] Address Unknown Care Team Providers Care Warehouse Shipping Receiving Clerk Name Role Phone Opal Tim MD Primary Care Provider + Encounter Details Date Type Department Care Team (Late st Contact Info) Description 01/11/2018 Scanned Document Pediatric [place] [address] Opal Tim MD [address] [place] [phone] Social History Tobacco Use Types Packs/Day [...] EDT Office Visit [facility] Adolescent Medicine [address] [address] Opal Tim MD [address] [place] [phone] 06/17/2026 1:25 PM EDT Appointment [address] [place] [address] 06/17/2026 2:30 PM EDT Follow Up [facility] Cardiology - [facility] 35 [facility] [address] [place] [address] Radha Yu MD [address] [phone] documented as of this encounter Visit Diagnoses [...] documented as of this encounter Care Teams Warehouse Shipping Receiving Clerk Relationship Specialty Start Date End Date Opal Tim MD [address] [phone] PCP - General Pediatrics 01/03/13 documented as of this encounter
--- OUTSIDE RECORDS SUMMARY | 2025-08-23 22:01 | XMS_ITS | Encounter Summary ---
Author Organization Pediatric & Adolesce nt Medicine [facility] Address Unknown Care Team Providers Care Certified Industrial Hygienist Name Role Phone Opal Tim MD Primary Care Provider + Encounter Details Date Type Department Care Team (Late st Contact Info) Description 01/11/2017 Scanned Document Pediatric & [place] [address] Opal Tim MD [address] [place] [phone] Social History Tobacco Use Types Packs/Day [...] Office Visit Pediatric & Adolescent Medicine [address] [address] Opal Tim MD [address] [place] [phone] 06/17/2026 1:25 PM EDT Appointment [address] 2nd [place] [address] 06/17/2026 2:30 PM EDT Follow Up [facility] Cardiology - [facility] 35 [facility] 2nd [place] [address] Radha Yu MD [address] [phone] documented as of this encounter Visit Diagnoses [...] documented as of this encounter Care Teams Certified Industrial Hygienist Relationship Specialty Start Date End Date Opal Tim MD [address] [phone] PCP - General Pediatrics 01/03/13 documented as of this encounter
--- OUTSIDE RECORDS SUMMARY | 2025-08-23 22:01 | XMS_ITS | Encounter Summary ---
Author Organization Pediatric & Adolesce nt Medicine [facility] Address Unknown Care Team Providers Care Nutrition Aides Teacher Name Role Phone Opal Tim MD Primary Care Provider + Encounter Details Date Type Department Care Team (Late st Contact Info) Description 10/27/2018 Scanned Document Pediatric & [place] [address] Opal Tim MD [address] [place] [phone] Social History Tobacco Use Types Packs/Day [...] EDT Office Visit Pediatric & Adolescent Medicine [address] [address] Opal Tim MD [address] [place] [phone] 06/17/2026 1:25 PM EDT Appointment [facility] Echocardiography [address] [place] [address], [place] [address] 06/17/2026 2:30 PM EDT Follow Up [facility] Cardiology - [address] [place] [address] Radha Yu MD [address] [phone] documented as of this encounter Visit Diagnoses [...] documented as of this encounter Care Teams Nutrition Aides Teacher Relationship Specialty Start Date End Date Opal Tim MD 677 [address] [facility] 4 [place] [phone] PCP - General Pediatrics 01/03/13 documented as of this encounter
--- OUTSIDE RECORDS SUMMARY | 2025-08-23 22:01 | XMS_ITS | Encounter Summary ---
Author Organization Pediatric & Adolesce nt Medicine [facility] Address Unknown Care Team Providers Care Surgical Supervisor Name Role Phone Opal Tim MD Primary Care Provider + Encounter Details Date Type Department Care Team (Late st Contact Info) Description 02/16/2022 Scanned Document [facility] Adoles[facility] Medicine [address] [address] Opal Tim MD [address] [place] [phone] Social History Tobacco Use Types Packs/Day Years [...] EDT Office Visit Pediatric & Adolescent Medicine [address] [address] Opal Tim MD [address] [place] [address] [place] [address] 06/17/2026 1:25 PM EDT Appointment [facility] Echocardiography [address] 2nd [place] [address] 06/17/2026 2:30 PM EDT Follow Up [facility] Cardiology - [facility] 35 [facility] 2nd [place] [address] Radha Yu MD 1 [facility] 2 [place] [address] documented as of this encounter Visit Diagnoses Not on filedocumented in this encounter Additional Health Concerns Infection Onset Date Last Indicated Resolved Time R/O COVID-19 04/30/2022 04/30/2022 04/30/2022 2:45 AM EDT R/O COVID-19 05/02/2022 05/02/2022 05/02/2022 7:42 AM EDT Assessment Noted Time PHQ-9 Depression Total Score: 1 12/08/19 22 2:19 PM EST documented as of this encounter Care Teams Surgical Supervisor Relationship Specialty Start Date End Date Opal Tim MD [address] [place] [address] [place] [address] PCP - General Pediatrics 01/03/13 documented as of this encounter
--- OUTSIDE RECORDS SUMMARY | 2025-08-23 22:01 | XMS_ITS | Encounter Summary ---
Author Organization Pediatric & Adolesce nt Medicine [facility] Address Unknown Care Team Providers Care Mexican Food Machine Tender Name Role Phone Opal Tim MD Primary Care Provider + Encounter Details Date Type Department Care Team (Late st Contact Info) Description 03/22/2016 Scanned Document Pediatric & [place] [address] Opal Tim MD [address] [place] [phone] Social History Tobacco Use Types Packs/Day [...] Office Visit [facility] Medicine [address] [address] Opal Tim MD [address] [place] [phone] 06/17/2026 1:25 PM EDT Appointment [address] 2nd [place] [address] 06/17/2026 2:30 PM EDT Follow Up [facility] Cardiology - [facility] 35 [facility] 2nd [place] [address] Radha Yu MD [address] [phone] documented as of this encounter Visit Diagnoses [...] documented as of this encounter Care Teams Mexican Food Machine Tender Relationship Specialty Start Date End Date Opal Tim MD [address] [phone] PCP - General Pediatrics 01/03/13 documented as of this encounter
--- OUTSIDE RECORDS SUMMARY | 2025-08-23 22:01 | XMS_ITS | Encounter Summary ---
Author Organization Pediatric & Adolesce nt Medicine [facility] Address Unknown Care Team Providers Care Environmental Program Manager Name Role Phone Opal Tim MD Primary Care Provider + Encounter Details Date Type Department Care Team ([facility] st Contact Info) Description 07/19/2025 Scanned Document Pediatric & Adolescent Medicine [address] [phone] Opal Tim MD [address] [place] [phone] Social History Tobacco Use Types Packs/Day [...] Upcoming Encounters Date Type Department Care Team ([facility] st Contact Info) Description 04/10/2026 11:00 AM EDT Office Visit Pediatric & Adolescent Medicine [address] [address] Opal Tim MD [address] [place] [phone] 06/17/2026 1:25 PM EDT Appointment [address] [address] 06/17/2026 2:30 PM EDT Follow Up [facility] Cardiology - [address] [address] Radha Yu MD [address] [place] [phone] documented as of this encounter Visit Diagnoses Not on filedocumented in this encounter Additional Health Concerns Assessment Noted Time PHQ-9 Depression Total Score: 12 025 12:40 PM EDT documented as of this encounter Care Teams Environmental Program Manager Relationship Specialty Start Date End Date Opal Tim MD [address] [phone] PCP - General Pediatrics 01/03/13 documented as of this encounter
--- OUTSIDE RECORDS SUMMARY | 2025-08-23 22:01 | XMS_ITS | Encounter Summary ---
Author Organization Pediatric & Adolesce nt Medicine [facility] Address Unknown Care Team Providers Care Computer Mechanic Name Role Phone Opal Tim MD Primary Care Provider + Encounter Details Date Type Department Care Team (Late st Contact Info) Description 11/01/2017 Scanned Document Pediatric [place] [address] Opal Tim MD [address] [place] [phone] Social History Tobacco Use Types Packs/Day [...] EDT Office Visit [facility] Adolescent Medicine [address] [address] Opal Tim MD [address] [place] [phone] 06/17/2026 1:25 PM EDT Appointment [address] 2nd [place] [address] 06/17/2026 2:30 PM EDT Follow Up [facility] Cardiology - [facility] 35 [facility] 2nd [place] [address] Radha Yu MD [address] [phone] documented as of this encounter Visit Diagnoses [...] documented as of this encounter Care Teams Computer Mechanic Relationship Specialty Start Date End Date Opal Tim MD [address] [phone] PCP - General Pediatrics 01/03/13 documented as of this encounter
--- OUTSIDE RECORDS SUMMARY | 2025-08-23 22:01 | XMS_ITS | Encounter Summary ---
Author Organization Pediatric & Adolesce nt Medicine [facility] Address Unknown Care Team Providers Care Business Systems Technician Name Role Phone Opal Tim MD Primary Care Provider + Encounter Details Date Type Department Care Team (Late st Contact Info) Description 10/06/2017 Scanned Document [facility] [place] [address] Opal Tim MD [address] [place] [phone] Social History Tobacco Use Types Packs/Day [...] EDT Office Visit [facility] [address] [address] Opal Tim MD [address] [place] [phone] 06/17/2026 1:25 PM EDT Appointment [address] 2nd [place] [address] 06/17/2026 2:30 PM EDT Follow Up [facility] Cardiology - [facility] [address] [facility] 2nd [place] [address] Radha Yu MD [address] [phone] documented as of this encounter Visit Diagnoses [...] documented as of this encounter Care Teams Business Systems Technician Relationship Specialty Start Date End Date Opal Tim MD [address] [phone] PCP - General Pediatrics 01/03/13 documented as of this encounter
--- OUTSIDE RECORDS SUMMARY | 2025-08-23 22:01 | XMS_ITS | Encounter Summary ---
Author Organization Pediatric & Adolesce nt Medicine [facility] Address Unknown Care Team Providers Care Athletic Trainer Name Role Phone Opal Tim MD Primary Care Provider + Encounter Details Date Type Department Care Team (Late st Contact Info) Description 03/22/2016 Scanned Document Pediatric & [place] [address] Opal Tim MD [address] [place] [phone] Social History Tobacco Use Types Packs/Day [...] EDT Office Visit [facility] [address] [address] Opal Tim MD [address] [place] [phone] 06/17/2026 1:25 PM EDT Appointment [address] 2nd [place] [address] 06/17/2026 2:30 PM EDT Follow Up [facility] Cardiology - [facility] 35 [facility] 2nd [place] [address] Radha Yu MD [address] [phone] documented as of this encounter Visit Diagnoses [...] documented as of this encounter Care Teams Athletic Trainer Relationship Specialty Start Date End Date Opal Tim MD [address] [phone] PCP - General Pediatrics 01/03/13 documented as of this encounter
--- OUTSIDE RECORDS SUMMARY | 2025-08-23 22:01 | XMS_ITS | Encounter Summary ---
Author Organization Pediatric & Adolesce nt Medicine [facility] Address Unknown Care Team Providers Care Institute Director Name Role Phone Opal Tim MD Primary Care Provider + Encounter Details Date Type Department Care Team (Late st Contact Info) Description 02/05/2022 Scanned Document [facility] [address] [address] Opal Tim MD [address] [place] [phone] Social History Tobacco Use Types Packs/Day Years [...] Office Visit [facility] [address] [address] Opal Tim MD [address] [place] [address] [place] [address] 06/17/2026 1:25 PM EDT Appointment Echocardiography [address] 2nd [place] [address] 06/17/2026 2:30 PM EDT Follow Up [facility] Cardiology - [facility] 35 [facility] 2nd [place] [address] Radha Yu MD 1 [facility] 2 [place] [address] documented as of this encounter Visit Diagnoses Not on filedocumented in this encounter Additional Health Concerns Infection Onset Date Last Indicated Resolved Time R/O COVID-19 04/30/2022 04/30/2022 04/30/2022 2:45 AM EDT R/O COVID-19 05/02/2022 05/02/2022 05/02/2022 7:42 AM EDT Assessment Noted Time PHQ-9 Depression Total Score: 1 12/08/19 22 2:19 PM EST documented as of this encounter Care Teams Institute Director Relationship Specialty Start Date End Date Opal Tim MD [address] [place] [address] [place] [phone] PCP - General Pediatrics 01/03/13 documented as of this encounter
--- OUTSIDE RECORDS SUMMARY | 2025-08-23 22:01 | XMS_ITS | Encounter Summary ---
Author Organization Pediatric & Adolesce nt Medicine [facility] Address Unknown Care Team Providers Care Mandolin Repair Person Name Role Phone Opal Tim MD Primary Care Provider + Encounter Details Date Type Department Care Team (Late st Contact Info) Description 07/30/2014 Scanned Document [facility] & [place] [address] Opal Tim MD [address] [place] [phone] Social History Tobacco Use Types Packs/Day [...] EDT Office Visit [facility] [address] [address] Opal Tim MD [address] [place] [phone] 06/17/2026 1:25 PM EDT Appointment [address] 2nd [place] [address] 06/17/2026 2:30 PM EDT Follow Up [facility] Cardiology - [facility] 35 [facility] 2nd [place] [address] Radha Yu MD [address] [phone] documented as of this encounter Visit Diagnoses [...] documented as of this encounter Care Teams Mandolin Repair Person Relationship Specialty Start Date End Date Opal Tim MD [address] [phone] PCP - General Pediatrics 01/03/13 documented as of this encounter
--- OUTSIDE RECORDS SUMMARY | 2025-08-23 22:01 | XMS_ITS | Encounter Summary ---
Author Organization Pediatric & Adolesce nt Medicine [facility] Address Unknown Care Team Providers Care Bottom Scrubber Name Role Phone Opal Tim MD Primary Care Provider + Encounter Details Date Type Department Care Team (Late st Contact Info) Description 11/23/2016 Scanned Document Pediatric [place] [address] Opal Tim MD [address] [place] [phone] Social History Tobacco Use Types Packs/Day [...] Office Visit [facility] [address] [address] Opal Tim MD [address] [place] [phone] 06/17/2026 1:25 PM EDT Appointment [address] 2nd [place] [address] 06/17/2026 2:30 PM EDT Follow Up [facility] Cardiology - [facility] 35 [facility] 2nd [place] [address] Radha Yu MD [address] [phone] documented as of this encounter Visit Diagnoses [...] documented as of this encounter Care Teams Bottom Scrubber Relationship Specialty Start Date End Date Opal Tim MD [address] [phone] PCP - General Pediatrics 01/03/13 documented as of this encounter
--- OUTSIDE RECORDS SUMMARY | 2025-08-23 22:01 | XMS_ITS | Clinical Summary ---
Author Organization [address] Address [address] [place] [phone] Care Team Providers Care Gas Line Servicer Name Role Phone Opal Tim MD Primary [...] Encounters Date Type Department Care Team Description 07/19/2025 Scanned Document [facility] [address] [address] Opal Tim MD 07/15/2025 Scanned Document [facility] [address] [address] Obtain, Unable To 06/11/2025 1:40 PM EDT Office Visit [facility] Cardiology - [address] 2nd [place] [address] Radha Yu MD Loeys-Bentley syndrome (HC CODE) (Primary Dx); Obesity, unspecified class, unspecified obesity type, unspecified whether serious comorbidity present; At risk for aneurysm of ascending aorta 06/11/2025 12:35 PM EDT - 06/11/2025 11:59 PM EDT Hospital Encounter [facility] Echocardiography [address] [place] [address] Radha Yu MD Loeys-Bentley syndrome (HC CODE) Discharge Disposition: Home or Self Care from Last 3 Months Immunizations Immunization Administration [...] Weight 104.2 kg (229 lb 11.5 oz) 2024 12:45 PM EDT Height 175.9 cm (5' 9.25 ) 06/11/2025 1 2:45 PM EDT Body Mass Index 33.68 06/11/2025 12:45 PM EDT Plan of Treatment Upcoming Encounters Date Type Department Care Team ([facility] st Contact Info) Description 04/10/2026 11:00 AM EDT Office Visit [facility] [place], [address] [place] [address] Opal Tim MD [address] [place] [phone] 06/17/2026 1:25 PM EDT Appointment [address] [place] [address] 06/17/2026 2:30 PM EDT Follow Up [facility] - [address] [address] Radha Yu MD [address] [place] [phone] Health Maintenance Due Date Last Done Comments [...] history exists Covid-19 vaccine series ( - season) 2025 10/23/2021, 02/16/2021, 01/26/2021 Chlamydia screening 03/30/2026 03/30/2025 RSV Immunization (1 - 1-dose 75+ series) 01/18/2079 Hepatitis B vaccine series Completed 10/23, 2004, 2004 HIB Vaccines Completed 04/20/2005, 02/2004, 2004, Additional history exists Hepatitis A Vaccines Completed 02/13/2008, 02/11/20 MMR Vaccines Completed 02/13/2008, 04/20/2005 IPV Vaccines [...] Name Priority Date/Time Associated Diagnosis Comments XR NECK SOFT TISSUE Routine 07/14/2025 1 0:47 AM EDT XR CHEST PA AND LATERAL Routine 07/14/2025 10:47 AM EDT TRANSTHORACIC ECHO (TTE) COMPLETE W COLOR AND DOPPLER Routine 06/11/2025 1:55 PM EDT Loeys-Bentley syndrome (HC CODE) HIV 1/2 AG/AB, W/REFLEXES (Q) Routine 03/30/2025 12:00 AM EDT Possible exposure to STD C. TRACHOMATIS/N. GONORRHOEAE RNA BY TMA (Q) Routine 03/30/2025 12:00 AM EDT Possible exposure to STD from Last 3 Months or Most Recently Relevant to Health Maintenance Results * XR Chest PA and Lateral (07/14/2025 10:47 AM EDT) Anatomical Region Laterality Modality Chest Digital Radiogra phy us Unable To Obtain IMG DIAGNOSTIC IMAGING ORDERABL ES Final Result * XR Neck Soft Tissue (07/14/2025 10:47 AM EDT) Anatomical Region Laterality Modality Neck, C-spine, Ortho Neck Digita l Radiography us Unable To Obtain IMG DIAGNOSTIC IMAGING ORDERABL ES Final Result * TRANSTHORACIC ECHO (TTE) COMPLETE W COLOR [...] purpose. For additional information please refer to http://education.[employer]/faq/JXY768 (This link is being provided for informational/ educational purposes only.) The performance of this assay has not been clinically validated in patients less than 2 years old. Blood 03/30/2025 03/30/2025 10: 11 AM EDT Narrative [facility] - 04/03/2025 7:51 PM EDT FASTING:YES FASTING: YES Resulting Agency Comment Performing Lab: Site ID: [id number] Name: [facility] Address: [address] [place] [phone] Director: Noni Garcia M.D. Opal Tim MD LAB BLOOD ORDERABLES Fin al Result [facility] [address] [place] [id number] [place] [address] * C. trachomatis/N. gonorrhoeae RNA by TMA, (Q) (03/30/2025 12:00 AM EDT) C. trachomatis RNA, TMA NOT DETECTED NOT DETECTED [facility] Neisseria gonorrhoeae RNA, TMA NOT DETECTED NOT DETECTED [facility] Comment [facility] Comment: The analytical performance characteristics of this assay, when used to test SurePath(TM) specimens have been determined by [employer]. The modifications have not been cleared or approved by the FDA. This assay has been validated pursuant to the CLIA regulations and is used for clinical purposes. For additional information, please refer to https://education.[employer]/faq/MME073 (This link is being provided for information/ educational purposes only.) Culture URINE SPECIMEN / Unknown 03/30/2025 03/30/2025 10:11 AM EDT Narrative [facility] - 04/03/2025 7:51 PM EDT FASTING:YES FASTING: YES Resulting Agency Comment Performing Lab: Site ID: [id number] Name: [facility] Address: [address] [place] [phone] Director: Noni Garcia M.D. Opal Tim MD MICROBIOLOGY - GENERAL O RDERABLES Final Result Performing Organization Address City/State/[facility] de Phone Number [facility] [address] [place] [address] from Last 3 Months or Most Recently Relevant to Health Maintenance Insurance BS Advance Directives * Full ACLS (Latest Code Status on File) Date Activated Date Inactivated Comments 05/03/2022 11:54 AM 05/11/2022 2:44 PM * Full ACLS Date Activated Date Inactivated Comments 04/30/2022 12:51 AM 05/03/2022 11:53 AM Care Teams Gas Line Servicer Relationship Specialty Start Date End Date Opal Tim MD [facility] [address] [phone] PCP - General Pediatrics 01/03/13
--- OUTSIDE RECORDS SUMMARY | 2025-08-23 22:01 | XMS_ITS | Encounter Summary ---
Author Organization Pediatric & Adolesce nt Medicine [facility] Address Unknown Care Team Providers Care Gluing Crew Leader Name Role Phone Opal Tim MD Primary Care Provider + Encounter Details Date Type Department Care Team (Late st Contact Info) Description 12/07/2016 Scanned Document Pediatric & [place] [address] Opal Tim MD [address] [place] [phone] Social History Tobacco Use Types Packs/Day [...] EDT Office Visit [facility] [address] [address] Opal Tim MD [address] [place] [phone] 06/17/2026 1:25 PM EDT Appointment [address] 2nd [facility] [place] [address] 06/17/2026 2:30 PM EDT Follow Up [facility] Cardiology - [facility] 35 [facility] 2nd [place] [address] Radha Yu MD [address] [address] documented as of this encounter Visit Diagnoses [...] documented as of this encounter Care Teams Gluing Crew Leader Relationship Specialty Start Date End Date Opal Tim MD [address] [phone] PCP - General Pediatrics 01/03/13 documented as of this encounter
--- OUTSIDE RECORDS SUMMARY | 2025-08-23 22:01 | XMS_ITS | Encounter Summary ---
Author Organization Pediatric & Adolesce nt Medicine [facility] Address Unknown Care Team Providers Care Endless Belt Finisher Name Role Phone Opal Tim MD Primary Care Provider + Encounter Details Date Type Department Care Team ([facility] st Contact Info) Description 07/19/2022 Scanned Document [facility] Medicine [address] [phone] Opal Tim MD [address] [place] [phone] Social History Tobacco Use Types Packs/Day [...] EDT Office Visit [facility] [address] [address] Opal Tim MD [address] [place] [phone] 06/17/2026 1:25 PM EDT Appointment [facility] Echocardiography [address] [place] [address] 06/17/2026 2:30 PM EDT Follow Up [facility] Cardiology - [address] [address] Radha Yu MD [address] [place] [phone] documented as of this encounter Visit Diagnoses Not on filedocumented in this encounter Additional Health Concerns Assessment Noted Time PHQ-9 Depression Total Score: 0 05/03/20 2:00 PM EDT documented as of this encounter Care Teams Endless Belt Finisher Relationship Specialty Start Date End Date Opal Tim MD [address] [place] [phone] PCP - General Pediatrics 01/03/13 documented as of this encounter
--- OUTSIDE RECORDS SUMMARY | 2025-08-23 22:01 | XMS_ITS | Encounter Summary ---
Author Organization Pediatric & Adolesce nt Medicine [facility] Address Unknown Care Team Providers Care Wet Primer Powder Blender Name Role Phone Opal Tim MD Primary Care Provider + Encounter Details Date Type Department Care Team ([facility] st Contact Info) Description 06/04/2022 Scanned Document [facility] [address] [phone] Opal Tim MD [address] [place] [phone] Social History Tobacco Use Types Packs/Day [...] Office Visit [facility] [address] [address] Opal Tim MD [address] [place] [phone] 06/17/2026 1:25 PM EDT Appointment [facility] Echocardiography [address] [place] [address] 06/17/2026 2:30 PM EDT Follow Up [facility] Cardiology - [address] [address] Radha Yu MD [address] [place] [phone] documented as of this encounter Visit Diagnoses Not on filedocumented in this encounter Additional Health Concerns Assessment Noted Time PHQ-9 Depression Total Score: 0 05/03/20 2:00 PM EDT documented as of this encounter Care Teams Wet Primer Powder Blender Relationship Specialty Start Date End Date Opal Tim MD [address] [place] [phone] PCP - General Pediatrics 01/03/13 documented as of this encounter
--- OUTSIDE RECORDS SUMMARY | 2025-08-23 22:01 | XMS_ITS | Encounter Summary ---
Author Organization Pediatric & Adolesce nt Medicine [facility] Address Unknown Care Team Providers Care Floor Tech Name Role Phone Opal Tim MD Primary Care Provider + Encounter Details Date Type Department Care Team (Late st Contact Info) Description 07/26/2017 Scanned Document Pediatric & [place] [address] Opal Tim MD [address] [place] [phone] Social History Tobacco Use Types Packs/Day [...] EDT Office Visit [facility] [address] [address] Opal Tim MD [address] [place] [phone] 06/17/2026 1:25 PM EDT Appointment [address] 2nd [place] [address] 06/17/2026 2:30 PM EDT Follow Up [facility] Cardiology - [facility] 35 [facility] 2nd [place] [address] Radha Yu MD [address] [phone] documented as of this encounter Visit Diagnoses [...] documented as of this encounter Care Teams Floor Tech Relationship Specialty Start Date End Date Opal Tim MD [address] [phone] PCP - General Pediatrics 01/03/13 documented as of this encounter
--- OUTSIDE RECORDS SUMMARY | 2025-08-23 22:01 | XMS_ITS | Encounter Summary ---
Author Organization Pediatric & Adolesce nt Medicine [facility] Address Unknown Care Team Providers Care Grinder Operator Name Role Phone Opal Tim MD Primary Care Provider + Encounter Details Date Type Department Care Team (Late st Contact Info) Description 05/04/2017 Scanned Document Pediatric [place] [address] Opal Tim MD [address] [place] [phone] Social History Tobacco Use Types Packs/Day [...] Office Visit [facility] [address] [address] Opal Tim MD [address] [place] [phone] 06/17/2026 1:25 PM EDT Appointment [address] 2nd [place] [address] 06/17/2026 2:30 PM EDT Follow Up [facility] Cardiology - [facility] 35 [facility] 2nd [place] [address] Radha Yu MD [address] [phone] documented as of this encounter Visit Diagnoses [...] documented as of this encounter Care Teams Grinder Operator Relationship Specialty Start Date End Date Opal Tim MD [address] [phone] PCP - General Pediatrics 01/03/13 documented as of this encounter
--- OUTSIDE RECORDS SUMMARY | 2025-08-23 22:01 | XMS_ITS | Encounter Summary ---
Author Organization Pediatric & Adolesce nt Medicine [facility] Address Unknown Care Team Providers Care Chief Informatics Officer Name Role Phone Opal Tim MD Primary Care Provider + Encounter Details Date Type Department Care Team ([facility] st Contact Info) Description 08/03/2022 Scanned Document [facility] [address] [address] Opal Tim MD [address] [place] [phone] Social History Tobacco Use Types Packs/Day [...] Office Visit [facility] [address] [address] Opal Tim MD [address] [place] [phone] 06/17/2026 1:25 PM EDT Appointment [facility] Echocardiography [address] [place] [address] 06/17/2026 2:30 PM EDT Follow Up [facility] Cardiology - [address] [address] Radha Yu MD [address] [place] [phone] documented as of this encounter Visit Diagnoses Not on filedocumented in this encounter Additional Health Concerns Assessment Noted Time PHQ-9 Depression Total Score: 0 05/03/20 2:00 PM EDT documented as of this encounter Care Teams Chief Informatics Officer Relationship Specialty Start Date End Date Opal Tim MD [address] [place] [phone] PCP - General Pediatrics 01/03/13 documented as of this encounter
--- OUTSIDE RECORDS SUMMARY | 2025-08-23 22:01 | XMS_ITS | Encounter Summary ---
Author Organization Pediatric & Adolesce nt Medicine [facility] Address Unknown Care Team Providers Care Polarity Tester Name Role Phone Opal Tim MD Primary Care Provider + Encounter Details Date Type Department Care Team ([facility] st Contact Info) Description 07/19/2022 Scanned Document [facility] [address] [address] Opal Tim MD [address] [place] [phone] Social History Tobacco Use Types Packs/Day [...] EDT Office Visit [facility] [address] [address] Opal Tim MD [address] [place] [phone] 06/17/2026 1:25 PM EDT Appointment [facility] Echocardiography [address] [place] [address] 06/17/2026 2:30 PM EDT Follow Up [facility] Cardiology - [address] [address] Radha Yu MD [address] [place] [phone] documented as of this encounter Visit Diagnoses Not on filedocumented in this encounter Additional Health Concerns Assessment Noted Time PHQ-9 Depression Total Score: 0 05/03/20 2:00 PM EDT documented as of this encounter Care Teams Polarity Tester Relationship Specialty Start Date End Date Opal Tim MD [address] [place] [phone] PCP - General Pediatrics 01/03/13 documented as of this encounter
--- OUTSIDE RECORDS SUMMARY | 2025-08-23 22:01 | XMS_ITS | Encounter Summary ---
Author Organization Pediatric & Adolesce nt Medicine [facility] Address Unknown Care Team Providers Care Drafter Mechanical Name Role Phone Opal Tmi MD Primary Care Provider + Encounter Details Date Type Department Care Team (Late st Contact Info) Description 03/02/2018 Scanned Document [facility] & [place] [address] Opal Tim MD [address] [place] [phone] Social History Tobacco Use Types Packs/Day [...] Office Visit [facility] [address] [address] Opal Tim MD [address] [place] [phone] 06/17/2026 1:25 PM EDT Appointment [address] 2nd [place] [address] 06/17/2026 2:30 PM EDT Follow Up [facility] Cardiology - [facility] 35 [facility] 2nd [place] [address] Radha Yu MD [address] [phone] documented as of this encounter Visit Diagnoses [...] documented as of this encounter Care Teams Drafter Mechanical Relationship Specialty Start Date End Date Opal Tim MD [address] [phone] PCP - General Pediatrics 01/03/13 documented as of this encounter
--- OUTSIDE RECORDS SUMMARY | 2025-08-23 22:01 | XMS_ITS | Encounter Summary ---
Author Organization [facility] Address Unknown Care Team Providers Care Curing Room Worker Name Role Phone Opal Tim MD Primary Care Provider + Encounter Details Date Type Department Care Team ([facility] st Contact Info) Description 10/21/2022 Scanned Document [facility] [address] [id number] Opal Tim MD [address] [place] [phone] Social History Tobacco Use Types Packs/Day [...] Office Visit [facility] Ad[facility] Medicine [address] [id number] Opal Tim MD [address] [place] [phone] 06/17/2026 1:25 PM EDT Appointment [facility] Echocardiography [address] [place] [phone] 06/17/2026 2:30 PM EDT Follow Up [facility] Cardiology - [address] [id number] Radha Yu MD [address] [place] [phone] documented as of this encounter Visit Diagnoses Not on filedocumented in this encounter Additional Health Concerns Assessment Noted Time PHQ-9 Depression Total Score: 0 05/03/20 2:00 PM EDT documented as of this encounter Care Teams Curing Room Worker Relationship Specialty Start Date End Date Opal Tim MD [address] [place] [phone] PCP - General Pediatrics 01/03/13 documented as of this encounter
[2025-08-23 22:08] LABS: MANUAL DIFF FLAG NO
[2025-08-23 22:10] LABS: Hematocrit 40.4 % (37.0-47.0); Hemoglobin 14.7 g/dl (12.0-16.0); Imm Gran Abs Auto 0.07 X10*3/uL (0.00-0.03); Imm Gran Pct Auto 0.4 % (0.0-0.4); Lymphocytes Absolute Auto 3.0 X10*3/uL (1.2-4.9); Mean Corpuscular HGB Conc 36.4 g/dl (31.0-35.0); Mean Corpuscular Hemoglobin 28.8 pg (27.0-33.0); Mean Corpuscular Volume 79.1 fL (80.0-98.0); NRBC Abs Auto 0.000 X10*3/uL (0.0-0.012); NRBC Pct Auto 0.0 /100WBC (0.0-0.2); Platelet Count 275 X10*3/uL (160-400); Red Blood Count 5.11 X10*6/uL (4.20-5.50); White Blood Count 16.0 X10*3/uL (4.8-10.8)
[2025-08-23 22:31] LABS: Alanine Aminotransferase 32 U/L (0-31); Albumin Level 4.4 g/dL (3.5-5.0); Alkaline Phosphatase 79 U/L (39-117); Anion Gap 14 (12-20); Aspartate Amino Transferase 22 U/L (5-31); Blood Urea Nitrogen 10 mg/dL (9-16); Calcium 9.3 mg/dL (8.4-10.2); Carbon Dioxide 23 mmol/L (22-29); Chloride 105 mmol/L (96-108); Creatinine Clr Calc Pharmacy 120.4; Estimated Glomerular Filt Rate > 60; Lipase 22 U/L (8-78); Magnesium 2.1 mg/dL (1.6-2.6); Potassium 3.9 mmol/L (3.3-5.1); Sodium 138 mmol/L (135-145); Total Protein 7.2 g/dL (6.5-8.0)
[2025-08-23 22:34] LABS: Appearance Urine Cloudy; Glucose Urine UA Negative (Negative); PH 8.5 (5.0-9.0); Specific Gravity - Urine 1.020 (1.005-1.025); UMIC TRIGGER UACC YES
--- NOTE | 2025-08-23 23:02 | ED.FEMALEGU ---
HPI - Female Genitourinary General Chief complaint: Vaginal Bleeding Stated complaint: ?TSS urgent care ask pt to come it Time Seen by Provider: 08/23/25 22:03 Source: patient, RN notes reviewed and old records reviewed Mode of arrival: ambulatory History of Present Illness ED Provider: Dodie Dugan PA-C HPI Narrative: 20-year-old female with a past medical history PTSD, bipolar, presenting to the ED complaining of lower abdominal discomfort, fever (Tmax 100.6 - tympanically), nausea, vomiting, chills x today. Patient was instructed by urgent care to come to the ED for concern of possible TSS. States she left a tampon in for 24 hours, removed this afternoon. Also reports some confusion while driving today, described as feeling off. Denies diarrhea, dysuria, hematuria, CP/SOB, rash. States is currently on menses - reports some brown vaginal discharge. Denies concern for STI, states has not been sexually active since May Related Data Home Medications ?Medication ?Instructions ?Recorded ?Confirmed lamotrigine 200 mg tablet 200 mg PO DAILY 06/28/23 06/28/23 (Lamictal) lorazepam 2 mg tablet (Ativan) 2 mg PO TID PRN Anxiety 06/28/23 06/28/23 lurasidone 20 mg tablet (Latuda) 20 mg PO BEDTIME 06/28/23 06/29/23 lurasidone 80 mg tablet (Latuda) 80 mg PO QAM 06/28/23 06/29/23 prazosin 2 mg capsule 2 mg PO BID 06/28/23 06/28/23 lorazepam 1 mg tablet 1 mg PO BID PRN Anxiety 06/29/23 06/29/23 quetiapine 25 mg tablet 25 mg PO TID PRN Agitation 06/29/23 06/29/23 Previous Rx's ?Medication ?Instructions ?Recorded diphenhydramine HCl 25 mg capsule 25 mg PO TID PRN allergic reaction 07/14/25 (Benadryl) #20 caps metoclopramide HCl 10 mg tablet 10 mg PO Q6H PRN headache #20 tabs 07/14/25 (Reglan) Allergies Allergy/AdvReac Type Severity Reaction Status Date / Time No Known Allergies Allergy Verified 08/23/25 21:47 Review of Systems Review of Systems: Yes all other systems are reviewed and are negative Constitutional: Constitutional: Reports as per HPI Neurologic: Denies Abnormal speech present [facility] Past Medical History Attestation statement: The following information was validated with the patient. Source: old records reviewed Medical History Chronic post-traumatic stress disorder (PTSD) Bipolar disorder Social History Social History Alcohol intake: current Smoked in Last 30 Days: Yes Use of substances other than those prescribed or required for medical reasons: No Advance Directives: No Advance Directives Information Provided: No Do you have a plan to hurt others: No Plan Patient : No Physical Exam Vital Signs: Vital Signs: Last Vital Signs Temp 98.1 F 08/23/25 21:43 Pulse 76 08/24/25 00:37 Resp 18 08/24/25 00:37 BP 113/57 L 08/24/25 00:37 Pulse Ox 96 08/24/25 00:37 O2 Del Method Room Air 08/24/25 00:37 BMI result Body Mass Index 34.0 Const: General: cooperative, healthy appearing and no acute distress Orientation/consciousness: patient oriented x3 Limitations: no limitations HEENT: Head: Yes normal to inspection and Yes atraumatic Ears: hearing grossly normal bilaterally General nose exam: Normal external nose present Face and sinus: Yes normal facial exam Eyes: General: appearance normal, both eyes and all related structures EOM: EOMs intact bilaterally Neck: Neck: Yes normal visual inspection and Yes no meningeal signs Resp: Effort & Inspection: normal respiratory effort and no respiratory distress Auscultation: clear to auscultation bilaterally Cardio: Rate: regular rate Heart sounds: S1 normal heart sound present and S2 normal heart sound present GI: Inspection: Yes normal to inspection Palpation (GI): Soft to palpation, Tenderness to palpation present (GI) (Left suprapubic), no guarding and not rigid : Speculum Exam - Vagina: no lesions and vaginal bleeding (in vault. No active hemorrhage.) Speculum Exam - Cervix: normal appearance of the cervix Bimanual exam- vagina & uterus: no cervical motion tenderness Bimanual Exam- Adnexa, other: tender on the left and no masses noted OB/external & speculum: vaginal bleeding (in vault. No active hemorrhage.) Skin: Other: No rash Rashes: no rashes Wounds: no wounds Neuro: General: patient oriented x3, tone normal, moves all extremities, no meningeal signs, no focal motor deficits and CN's II-XI intact bilaterally Cranial nerves: Yes CN's II-XII intact bilaterally Cognition (Neuro): normal cognition Speech: No Abnormal speech present Gait exam (Neuro): Normal gait present Extrem: General: Yes normal to inspection Course Course Course Narrative: -0015--leukocytosis of 16.0 - appears acute on chronic -labs otherwise reassuring. HCG negative -UA with RBCs > patient currently menstruating. No infection. -viral testing negative CT abdomen pelvis w IV con IMPRESSION: 1. No acute abnormality in the abdomen or pelvis. 2. Small hiatal hernia. > 1300--on re-evaluation patient reports symptomatic improvement. Results discussed. Feels comfortable with discharge home with close PCP follow-up Results discussed with patient including worrisome signs and symptoms and strict return precautions, and when to return to the emergency department. They verbalized understanding and feel safe for discharge at this time. Medications Administered Discontinued Medications Generic Name Dose Route Start Last Admin Trade Name Freq PRN Reason Stop Dose Admin Sodium Chloride 1,000 mls @ 999 mls/hr 08/23/25 23:15 08/24/25 00:46 Ns IV 08/24/25 00:15 Infused .Q1H1M AZIZA Infusion Ketorolac Tromethamine 15 mg 08/23/25 23:09 08/23/25 23:37 Ketorolac Tromethamine 15 Mg/Ml Vial IVPUSH 08/23/25 23:10 15 mg ONCE ONE Administration Ondansetron HCl 4 mg 08/23/25 23:09 08/23/25 23:37 Ondansetron Hcl 4 Mg/2 Ml Vial IVPUSH 08/23/25 23:10 4 mg ONCE ONE Administration Medical Decision Making Medical Decision Making MDM Narrative: 20-year-old female with a past medical history PTSD, bipolar, presenting to the ED complaining of lower abdominal discomfort, fever (tympanically 100.6), nausea, vomiting, chills x today. On exam vital signs stable, afebrile, NAD/nontoxic appearing, abdomen is soft and non tender, No focal deficits. On pelvic exam small amount vaginal bleeding noted in vault, no active hemorrhage. + left adnexal tenderness. No CMT. Low suspicion for TSS. Concern for viral illness vs gastroenteritis vs ?TOA. Lower suspicion for ovarian torsion, PID, appendicitis/diverticulitis/cholecystitis/pancreatitis. Low concern for CVA/TIA or SAH Plan: Labs, UA, STI testing, imaging Ultrasound is not in house right now > will obtain CT/AP Please refer to course for remaining clinical decision making, interpretation of labs/imaging results, and discussions with consultants and/or family members. Differential Diagnosis Differential Diagnoses: The differential diagnosis associated with the presentation includes As above Admission/Observation Consideration of admission/observation: Escalation of care including admission/observation considered Lab Data MDM Lab Attestation statement: I reviewed the patient's lab results. 08/23/25 22:03 08/23/25 22:03 Labs: Lab Results 08/23/25 08/23/25 08/23/25 Range/Units 22:03 22:16 22:31 WBC 16.0 H (4.8-10.8) X10*3/uL RBC 5.11 (4.20-5.50) X10*6/uL Hgb 14.7 (12.0-16.0) g/dl Hct 40.4 (37.0-47.0) % MCV 79.1 L (80.0-98.0) fL MCH 28.8 (27.0-33.0) pg MCHC 36.4 H (31.0-35.0) g/dl RDW 14.1 (11.0-16.0) % Plt Count 275 (160-400) X10*3/uL MPV 10.2 (9.4-12.3) fL Immature Gran % (Auto) 0.4 (0.0-0.4) % Neut % (Auto) 72.1 (45-73) % Lymph % (Auto) 18.8 L (20-40) % [place] % (Auto) 8.0 (2-11) % Eos % (Auto) 0.4 (0-4) % Baso % (Auto) 0.3 (0-2) % Lymph # (Auto) 3.0 (1.2-4.9) X10*3/uL [place] # (Auto) 1.3 H (0.1-1.2) X10*3/uL Eos # (Auto) 0.1 (0.0-0.4) X10*3/uL Baso # (Auto) 0.1 (0.0-0.2) X10*3/uL Abs Immat Gran (auto) 0.07 H (0.00-0.03) X10*3/uL Absolute Neuts (auto) 11.6 H (2.0-8.3) x10*3/uL Absolute Nucleated RBC 0.000 (0.0-0.012) X10*3/uL Nucleated RBC % (auto) 0.0 (0.0-0.2) /100WBC Sodium 138 (135-145) mmol/L Potassium 3.9 (3.3-5.1) mmol/L Chloride 105 (96-108) mmol/L Carbon Dioxide 23 (22-29) mmol/L Anion Gap 14 (12-20) BUN 10 (9-16) mg/dL Creatinine 0.95 (0.5-1.4) mg/dL Estim Creat Clear Calc 120.4 Estimated GFR > 60 Random Glucose 138 H (60-115) mg/dL Calcium 9.3 (8.4-10.2) mg/dL Magnesium 2.1 (1.6-2.6) mg/dL Total Bilirubin 0.6 (0.0-1.0) mg/dL AST 22 (5-31) U/L ALT 32 H (0-31) U/L Alkaline Phosphatase 79 (39-117) U/L Total Protein 7.2 (6.5-8.0) g/dL Albumin 4.4 (3.5-5.0) g/dL Lipase 22 (8-78) U/L Beta HCG, Quant < 2 mIU/mL Urine Color Yellow Urine Appearance Cloudy Urine pH 8.5 (5.0-9.0) Ur Specific [place] 1.020 (1.005-1.025) Urine Protein Negative (Neg-Trace) mg/dL Urine Glucose (UA) Negative (Negative) mg/dL Urine Ketones Negative (Negative) mg/dL Urine Blood Moderate (2+) H (Negative) Urine Nitrite Negative (Negative) Ur Leukocyte Esterase Negative (Negative) Urine RBC 11-20 H (0-2) /HPF Urine WBC 0-5 (0-5) /HPF Ur Squamous Epith Cells 3-5 (0-2) /HPF Urine Bacteria None Seen (None Seen) Hyaline Casts 0-2 (0-2) /LPF Chlam trachomat DNA PCR (Not Detect.) Influenza Type A (PCR) NEGATIVE (Negative) Influenza Type B (PCR) NEGATIVE (Negative) N.gonorrhoeae DNA (PCR) (Not Detect.) RSV RNA Qual (PCR) NEGATIVE (Negative) SARS-CoV-2 RNA (RT-PCR) NEGATIVE (Negative) T. vaginalis (PCR) (Not Detect) Bact vaginosis (PCR) (Negative) C. krusei/glabrata (PCR) (Not Detect) Grecia group (PCR) (Not Detect) 08/23/25 Range/Units 23:28 WBC (4.8-10.8) X10*3/uL RBC (4.20-5.50) X10*6/uL Hgb (12.0-16.0) g/dl Hct (37.0-47.0) % MCV (80.0-98.0) fL MCH (27.0-33.0) pg MCHC (31.0-35.0) g/dl RDW (11.0-16.0) % Plt Count (160-400) X10*3/uL MPV (9.4-12.3) fL Immature Gran % (Auto) (0.0-0.4) % Neut % (Auto) (45-73) % Lymph % (Auto) (20-40) % [place] % (Auto) (2-11) % Eos % (Auto) (0-4) % Baso % (Auto) (0-2) % Lymph # (Auto) (1.2-4.9) X10*3/uL [place] # (Auto) (0.1-1.2) X10*3/uL Eos # (Auto) (0.0-0.4) X10*3/uL Baso # (Auto) (0.0-0.2) X10*3/uL Abs Immat Gran (auto) (0.00-0.03) X10*3/uL Absolute Neuts (auto) (2.0-8.3) x10*3/uL Absolute Nucleated RBC (0.0-0.012) X10*3/uL Nucleated RBC % (auto) (0.0-0.2) /100WBC Sodium (135-145) mmol/L Potassium (3.3-5.1) mmol/L Chloride (96-108) mmol/L Carbon Dioxide (22-29) mmol/L Anion Gap (12-20) BUN (9-16) mg/dL Creatinine (0.5-1.4) mg/dL Estim Creat Clear Calc Estimated GFR Random Glucose (60-115) mg/dL Calcium (8.4-10.2) mg/dL Magnesium (1.6-2.6) mg/dL Total Bilirubin (0.0-1.0) mg/dL AST (5-31) U/L ALT (0-31) U/L Alkaline Phosphatase (39-117) U/L Total Protein (6.5-8.0) g/dL Albumin (3.5-5.0) g/dL Lipase (8-78) U/L Beta HCG, Quant mIU/mL Urine Color Urine Appearance Urine pH (5.0-9.0) Ur Specific [place] (1.005-1.025) Urine Protein (Neg-Trace) mg/dL Urine Glucose (UA) (Negative) mg/dL Urine Ketones (Negative) mg/dL Urine Blood (Negative) Urine Nitrite (Negative) Ur Leukocyte Esterase (Negative) Urine RBC (0-2) /HPF Urine WBC (0-5) /HPF Ur Squamous Epith Cells (0-2) /HPF Urine Bacteria (None Seen) Hyaline Casts (0-2) /LPF Chlam trachomat DNA PCR NOT DETECTED (Not Detect.) Influenza Type A (PCR) (Negative) Influenza Type B (PCR) (Negative) N.gonorrhoeae DNA (PCR) NOT DETECTED (Not Detect.) RSV RNA Qual (PCR) (Negative) SARS-CoV-2 RNA (RT-PCR) (Negative) T. vaginalis (PCR) NOT DETECTED (Not Detect) Bact vaginosis (PCR) NEGATIVE (Negative) C. krusei/glabrata (PCR) NOT DETECTED (Not Detect) Grecia group (PCR) NOT DETECTED (Not Detect) Independent Interpretation I performed an independent interpretation of an: CT Scan Radiology Impression Discussion of test interpretation with radiology: I have reviewed the radiologist's reading. External Record Review External record reviewed: Inpatient record, Office record, Outpatient record, Prior outpatient labs, Prior outpatient radiology, Primary care record and Outside ED record Tests considered The following testing was considered but not selected: As above Prescription Management I considered prescription management with: Pain Medication and Antibiotic Chronic Conditions Patient?s care impacted by: Other Social Determinants Patient?s care significantly limited by Social Determinants of Health including: Other Social Determinant of Health Discharge Plan Discharge Clinical Impression: Suprapubic pain Patient Disposition: Home, Self-Care Instructions: Pelvic Pain (ED) Additional Instructions: Your CAT scan is reassuring. Your urine has blood in it however you are currently on your menses Please have very close follow up with your primary care doctor and develop care with a americanization teacher If her symptoms persist, worsen, you develop persistent or worsening vaginal bleeding, any vaginal discharge, fever, rash please return to the ED immediately Prescriptions: No Action lorazepam [Ativan] 2 mg Tablet 2 mg PO TID PRN (Reason: Anxiety) lamotrigine [Lamictal] 200 mg Tablet 200 mg PO DAILY lurasidone [Latuda] 20 mg Tablet 20 mg PO BEDTIME Rx Instructions: must administer with food (at least 350 calories) lurasidone [Latuda] 80 mg Tablet 80 mg PO QAM Rx Instructions: must administer with food (at least 350 calories) prazosin 2 mg Capsule 2 mg PO BID quetiapine 25 mg Tablet 25 mg PO TID PRN (Reason: Agitation) lorazepam 1 mg Tablet 1 mg PO BID PRN (Reason: Anxiety) diphenhydramine HCl [Benadryl] 25 mg capsule 25 mg PO TID PRN (Reason: allergic reaction) Qty: 20 0RF metoclopramide HCl [Reglan] 10 mg tablet 10 mg PO Q6H PRN (Reason: headache) Qty: 20 0RF Referrals: [facility] [place] [facility] [Provider Group] - 1 week Amanda Tim MD [Primary Care Provider, Pediatrics] - 2 days Print Language: Citizen [place]
[2025-08-23 23:14] LABS: Resp Syncy Virus RNA Qual PCR NEGATIVE (Negative); SARS COV2 PCR INHOUSE NEGATIVE (Negative)
[2025-08-24 00:30] LABS: Bacterial Vaginosis PCR NEGATIVE (Negative); Candida Group PCR NOT DETECTED (Not Detect); Candida glab krusei PCR NOT DETECTED (Not Detect); Trichomonas vaginalis PCR NOT DETECTED (Not Detect)
[2025-08-24 00:37] VITALS: BP 113/57; PULSE 76; RESP 18; O2SAT 96
[2025-08-24 01:01] LABS: CT PCR NOT DETECTED (Not Detect.); NG PCR NOT DETECTED (Not Detect.)
[2025-08-24 01:12] VITALS: BP 113/57; PULSE 76; RESP 18; TEMP 36.7; O2SAT 96
== END 2025-08-24 01:18 | disposition home or self-care (01) ==
PROVIDERS: Physician Assistant; Emergency Provider Emergency Medicine; PCP Pediatrics
DX: R10.24 Suprapubic pain (principal); R11.2 Nausea with vomiting, unspecified; R41.0 Disorientation, unspecified; Z20.2 Contact with and (suspected) exposure to infections with a predominantly sexual mode of transmission; Z79.899 Other long term (current) drug therapy; Z03.818 Encounter for observation for suspected exposure to other biological agents ruled out
CPT/HCPCS: 36415; 74177; 80053; 81001; 81515; 83690; 83735; 84702; 85025; 87491; 87591; 87637; 96361; 96374; 96375; 99284; J1885; J2405

== ENCOUNTER → 2025-08-23 23:26 | Outpatient (BNV) | payer BC, SELFPAY | PROVIDERS: Emergency Provider Emergency Medicine; PCP Pediatrics; Visit Provider Radiology Diagnostic Radiology | DX: K44.9 Diaphragmatic hernia without obstruction or gangrene (principal) | CPT/HCPCS: 74177 ==